=== PATIENT | male | born 1965 | race Two or more races ===

== ENCOUNTER 2018-06-03 11:08 | Inpatient (IN) | payer MEDICAID ==
[~2018-06-03] VITALS: Ht 157.5 cm; Wt 55.8 kg
[2018-06-03 11:20] VITALS: BP 136/80
--- NOTE | 2018-06-03 11:20 | NUR ---
ED Nurse Note: Pt brought in by ambulance from [facility] d/t fever 101.3 F and LLQ abd pain with headache and dizziness. Pt is AAO x4, mongolian speaking with unlabored breathing. Pt came in with a suprapubic catheter.
[2018-06-03] MEDS ORDERED: Cefepime HCl 2 GM in NS 110 ML IV SCH (11:30)
--- NOTE | 2018-06-03 11:45 | Emergency Room Report ---
History of Present Illness General Chief Complaint: Fever Source: Patient, Medical Record, EMS Present Illness HPI Patient was sent in from [facility] after fever. The patient has a minimal cough. He has some muscle aches. He had some chills. He does have a suprapubic catheter and states that he could not urinate and that's why the suprapubic catheter was placed. No chest pain, palpitations, nausea, vomiting, diarrhea, abdominal pain, shortness of breath, depression, visual changes, headache. Patient has a history of seizure disorder. History of HIV. Status post suprapubic catheter placement due to difficulty urinating. The specifics are unclear. Patient is diabetic. Allergies: Coded Allergies: No Known Allergies (Unverified , 06/03/18) Patient History Past Medical History: see triage record, DM, seizures, HIV Social History: Denies: smoking Social History Narrative born in [facility] Reviewed Nursing Documentation: PMH: Agreed; PSxH: Agreed Nursing Documentation-PMH Past Medical History: No History, Except For Hx Hypertension: Yes Hx Diabetes: Yes - Type 1 Hx Seizures: Yes Review of Systems All Other Systems: negative except mentioned in HPI - Somewhat questionable historian Physical Exam Vital Signs Date Time Temp Pulse Resp B/P (MAP) Pulse Ox O2 Delivery O2 Flow Rate FiO2 06/03/18 11:10 101.8 124 16 136/80 92 Room Air Sp02 EP Interpretation: reviewed, abnormal - Interpreted as low by me General Appearance: alert, Chronically Ill Head: normocephalic Eyes: bilateral eye normal inspection, bilateral eye PERRL, bilateral eye EOMI ENT: moist mucus membranes - Poor dentition Neck: supple Respiratory: lungs clear, normal breath sounds Cardiovascular #1: tachycardia Cardiovascular #2: 2+ radial (R) Gastrointestinal: normal inspection, normal bowel sounds, non tender, no mass, non-distended Genitourinary: other - Suprapubic catheter Musculoskeletal: back normal, normal range of motion, no calf tenderness Neurologic: alert, speech normal, no Babinski, motor weakness - Generalized, oriented - X2 Psychiatric: mood/affect normal Skin: normal inspection, warm/dry Medical Decision Making Diagnostic Impression: Primary Impression: Sepsis Qualified Codes: A41.9 - Sepsis, unspecified organism Additional Impressions: UTI (urinary tract infection) Qualified Codes: T83.510A - Infection and inflammatory reaction due to cystostomy catheter, initial encounter; N39.0 - Urinary tract infection, site not specified Hyponatremia Atelectasis ER Course Patient presents with fever and chills. Differential includes sepsis, pneumonia , urinary tract infection amongst others. Because is a suprapubic catheter this is the most likely source. Evaluation will be with EKG, chest x-ray and labs. The patient will be treated with IV hydration and antibiotics will be started to cover her urinary source. EKG was sinus tachycardia. Chest x-ray with right-sided atelectasis and increased hilar waldrop. WBC high. Sodium low. Lactate minimally high. Sepsis re-evaluation. Improved cap fill, HR improved but still tachycardic. Antibiotics begun. 13:10 Repeat lactate improved Discussed with Dr. Bobo on-call for Dr. Steel. Admit tele. Requests admitted to Dr. Dong. Laboratory Tests Test 06/03/18 11:40 White Blood Count 20.1 K/UL (4.8-10.8) H Red Blood Count 4.24 M/UL (4.70-6.10) L Hemoglobin 10.3 G/DL (14.2-18.0) L Hematocrit 32.5 % (42.0-52.0) L Mean Corpuscular Volume 77 FL (80-99) L Mean Corpuscular Hemoglobin 24.3 PG (27.0-31.0) L Mean Corpuscular Hemoglobin Concent 31.6 G/DL (32.0-36.0) L Red Cell Distribution Width 15.6 % (11.6-14.8) H Platelet Count 323 K/UL (150-450) Mean Platelet Volume 4.7 FL (6.5-10.1) L Neutrophils (%) (Auto) % (45.0-75.0) Lymphocytes (%) (Auto) % (20.0-45.0) Monocytes (%) (Auto) % (1.0-10.0) Eosinophils (%) (Auto) % (0.0-3.0) Basophils (%) (Auto) % (0.0-2.0) Differential Total Cells Counted 100 Neutrophils % (Manual) 87 % (45-75) H Lymphocytes % (Manual) 5 % (20-45) L Monocytes % (Manual) 7 % (1-10) Eosinophils % (Manual) 0 % (0-3) Basophils % (Manual) 0 % (0-2) Band Neutrophils 1 % (0-8) Platelet Estimate Adequate Platelet Morphology Normal Hypochromasia 1+ Anisocytosis 1+ Microcytosis 1+ Prothrombin Time 10.2 SEC (9.30-11.50) Prothrombin Time INR 1.0 (0.9-1.1) PTT 26 SEC (23-33) Urine Color Pale yellow Urine Appearance Clear Urine pH 8 (4.5-8.0) Urine Specific [place] 1.015 (1.005-1.035) Urine Protein 2+ (NEGATIVE) H Urine Glucose (UA) 4+ (NEGATIVE) H Urine Ketones Negative (NEGATIVE) Urine Blood 1+ (NEGATIVE) H Urine Nitrite Negative (NEGATIVE) Urine Bilirubin Negative (NEGATIVE) Urine Urobilinogen Normal MG/DL (0.0-1.0) Urine Leukocyte Esterase 2+ (NEGATIVE) H Urine RBC 2-4 /HPF (0 - 0) H Urine WBC 10-15 /HPF (0 - 0) H Urine Squamous Epithelial Cells Occasional /LPF Urine Bacteria Occasional /HPF (NONE) Sodium Level 126 MMOL/L (136-145) L Potassium Level 3.2 MMOL/L (3.5-5.1) L Chloride Level 90 MMOL/L (98-107) L Carbon Dioxide Level 25 MMOL/L (21-32) Anion Gap 11 mmol/L (5-15) Blood Urea Nitrogen 4 mg/dL (7-18) L Creatinine 0.9 MG/DL (0.55-1.30) Estimate Glomerular Filtration Rate > 60 mL/min (>60) Glucose Level 249 MG/DL (74-106) H Lactic Acid Level 2.20 mmol/L (0.4-2.0) H Calcium Level 8.9 MG/DL (8.5-10.1) Magnesium Level 1.8 MG/DL (1.8-2.4) Total Bilirubin 0.2 MG/DL (0.2-1.0) Aspartate Amino Transferase (AST) 21 U/L (15-37) Alanine Aminotransferase (ALT) 19 U/L (12-78) Alkaline Phosphatase 285 U/L (46-116) H Total Creatine Kinase 149 U/L (26-308) Troponin I 0.043 ng/mL (0.000-0.056) Pro-B-Type Natriuretic Peptide 167 pg/mL (0-125) H Total Protein 8.8 G/DL (6.4-8.2) H Albumin 3.7 G/DL (3.4-5.0) Globulin 5.1 g/dL Albumin/Globulin Ratio 0.7 (1.0-2.7) L EKG Diagnostic Results Rate: tachycardiac Rhythm: NSR ST Segments: no acute changes Rhythm Strip Diag. Results EP Interpretation: yes Rhythm: no PVC's, no ectopy, other - Sinus tachycardia Chest X-Ray Diagnostic Results Chest X-Ray Diagnostic Results : Chest X-Ray Ordered: Yes Indication: Other EP Interpretation: Yes Interpretation: no effusion, no pneumothorax, other - R atelectasis Impression: Other Electronically Signed by: Electronically signed by Amos Mims MD Last Vital Signs Date Time Temp Pulse Resp B/P (MAP) Pulse Ox O2 Delivery O2 Flow Rate FiO2 06/03/18 19:26 101.1 06/03/18 16:00 93 140/79 (99) 06/03/18 14:31 Room Air 06/03/18 13:48 25 97 3.0 Status: improved Disposition: ADMITTED INPATIENT Condition: Serious Referrals: Bernie Steel MD (PCP) Amos Mims MD Jun 03, 2018 11:45
--- NOTE | 2018-06-03 11:45 | NUR ---
ED Nurse Note: Blood and urine sent.
--- NOTE | 2018-06-03 12:00 | Diagnostic Imaging Report ---
Indication: Cough Technique: One view of the chest Comparison: none Findings: There is right perihilar atelectasis or scarring. There is bilateral central bronchial wall thickening. No definite infiltrates, effusions, or congestion. The heart size is normal Impression: Bilateral bronchial wall thickening, suspect chronic Right perihilar atelectasis or scarring No acute process otherwise
[2018-06-03 12:09] LABS: HEMATOCRIT 32.5 % (42.0-52.0); HEMOGLOBIN 10.3 G/DL (14.2-18.0); MEAN CORPUSCULAR VOLUME 77 FL (80-99); PLATELET COUNT 323 K/UL (150-450); RED BLOOD COUNT 4.24 M/UL (4.70-6.10); RED CELL DISTRIBUTION WIDTH 15.6 % (11.6-14.8); WHITE BLOOD COUNT 20.1 K/UL (4.8-10.8)
[2018-06-03 12:13] LABS: APPEARANCE,URINE CLEAR; BILIRUBIN, URINE NEGATIVE (NEGATIVE); COLOR,URINE PALE YELLOW; GLUCOSE, URINE (UA) 4+ (NEGATIVE); KETONES,URINE NEGATIVE (NEGATIVE); LEUKOCYTE ESTERASE ,URINE 2+ (NEGATIVE); NITRITE,URINE NEGATIVE (NEGATIVE); PH,URINE 8 (4.5-8.0); PROTEIN,URINE 2+ (NEGATIVE); UROBILINOGEN,URINE NORMAL MG/DL (0.0-1.0)
[2018-06-03 12:16] LABS: ANION GAP 11 mmol/L (5-15); BLOOD UREA NITROGEN 4 mg/dL (7-18); CALCIUM 8.9 MG/DL (8.5-10.1); CARBON DIOXIDE 25 MMOL/L (21-32); CHLORIDE 90 MMOL/L (98-107); CREATININE 0.9 MG/DL (0.55-1.30); POTASSIUM 3.2 MMOL/L (3.5-5.1); SODIUM 126 MMOL/L (136-145)
[2018-06-03 12:28] LABS: ALANINE AMINOTRANSFERASE 19 U/L (12-78); ALBUMIN 3.7 G/DL (3.4-5.0); ALBUMIN/GLOBULIN RATIO 0.7 (1.0-2.7); ALKALINE PHOSPHATASE 285 U/L (46-116); ASPARTATE AMINO TRANSFERASE 21 U/L (15-37); BILIRUBIN,TOTAL 0.2 MG/DL (0.2-1.0); CREATINE KINASE 149 U/L (26-308)
[2018-06-03 13:08] VITALS: BP 130/74
--- NOTE | 2018-06-03 13:43 | NUR ---
ED Nurse Note: Repeat lactic acid sent.
--- NOTE | 2018-06-03 13:47 | NUR ---
ED Nurse Note: Report given to Justin SULLIVAN of telemetry unit and notified him that Dr Bobo is the emotional support teacher MD for Dr Steel.
--- NOTE | 2018-06-03 13:48 | NUR ---
ED Nurse Note: Pt transferred to telemetry unit via gurney by RN and door techniciangary Bonilla. Pt on it help desk technician and All belongings sent.
[2018-06-03 14:30] VITALS: BP 133/80
[2018-06-03] MEDS ORDERED: Mylanta II UD 30ml ORAL PRN (15:02)
[2018-06-03] MEDS ORDERED: Nitroglycerin Subl 0.4mg tab SL PRN (15:03)
[2018-06-03] MEDS ORDERED: Albuterol/Ipratropium 3ml neb HHN PRN (15:03)
[2018-06-03] MEDS ORDERED: Miralax 17gm pkt ORAL PRN (15:04)
[2018-06-03] MEDS ORDERED: Promethazine/Codeine 5ml UD ORAL PRN (15:04)
--- NOTE | 2018-06-03 15:08 | NUR ---
TELEMETRY ADMISSION NOTES: Pt admitted to the floor, PT bed in low position, IV intact and patent Rt Hand 20 asymptomatic and patent, Pt Ox4 calm and cooperative, brand leader on, Md notified of admission, Frisian speaker reason for me to conduct interview [facility] patient, complaints of rt upper arm pain not related to his admission, pt On Room air, ID band on RT wrist, bed alam on, call light at bedside, pt state he has a head ache Vital on admission WNL, pt not confused and is aware of surroundings, pt has clothes from SNF he came from, pt states he has HIV, DM, as his past medical history. Will endorse to NATE Lawson
[2018-06-03 16:00] VITALS: BP 140/79
[2018-06-03] MEDS ORDERED: Vancomycin 1gm/D5W 275ml IVPB ONE ×2 (16:30)
--- NOTE | 2018-06-03 18:49 | History & Physical ---
History and Physical History & Physicial Felix Dong MD Jun 03, 2018 18:49
--- NOTE | 2018-06-03 19:15 | NUR ---
NURSE NOTES: Received report from Bella Mcrae RN. Pt is resting in the bed in RA, not respiratory distress. 2L NC prn is ready to use at the bedside. SR in the monitor, A&O x4, Hungarian speaking. IV site is asymptomatic and patent. Supra pubic cath is in place and patent. urine bag is off the floor, Straw color urine is draining. Bed alarm on, bed in lowest position, and breaks are engaged. Call light , and side table are w/in reach. Will follow plans of care.
--- NOTE | 2018-06-03 19:30 | NUR ---
NURSE NOTES: Dr. Dong notified about patient's temperature. Patient given Tylenol and cooling measures implemented. BP and heart rate within normal range.
--- NOTE | 2018-06-03 19:33 | NUR ---
HAND-OFF: Report given to Arik Clements RN.
[2018-06-03 20:00] VITALS: BP 129/75
[2018-06-03] MEDS: Phenytoin 100mg cap ORAL SCH (20:56)
[2018-06-03] MEDS: NS w/KCl 20mEq 1,000 ML IV SCH (20:56)
[2018-06-03] MEDS: Heparin 5000 units/ml inj SUBQ SCH (21:00)
[2018-06-03] MEDS: NovoLOG Insulin Flexpen SUBQ SCH (21:02)
[2018-06-03] MEDS: Levemir Flexpen SUBQ SCH (21:03)
--- NOTE | 2018-06-03 23:24 | NUR ---
NURSE NOTES: Pt is sleeping w/o distress, easily arousal by voice stimuli. Temp is trending down. Will continue to monitor.
[2018-06-04] VITALS: BP 132/77
[2018-06-04] MEDS: Cefepime HCl 1 GM in D5W 55 ML IV SCH ×2 (00:31→12:05)
--- NOTE | 2018-06-04 03:15 | History and Physical Report ---
DATE OF ADMISSION: 06/03/2018 CHIEF COMPLAINT: Fever. HISTORY OF PRESENT ILLNESS: This is a gentleman from [facility], who presented to the hospital from [facility] with a past medical history significant for hypertension, diabetic, and seizure. The patient was noted to have fever with minimal cough, muscle aches, and some chills. Shortly after initial evaluation in the emergency room, the patient was noted to have lactic acidosis level of 2.20 with WBC of 20.1 and subsequently, the patient was admitted to the hospital with sepsis possibly due to urinary tract infection. PAST MEDICAL/PAST SURGERY: As above. History of hypertension, diabetes type 1, and seizure disorder. MEDICATIONS AT HOME: Please refer to medication reconciliation. ALLERGIES: No known drug allergies. SOCIAL HISTORY: [facility] resident. No smoking, alcohol, or drugs. FAMILY HISTORY: Noncontributory. REVIEW OF SYSTEMS: Limited secondary to the patient's status. The patient is from nursing facility and noncommunicative. PHYSICAL EXAMINATION: VITAL SIGNS: On admission, temperature 101.8, pulse of 124, respirations 16, and blood pressure 136/80. GENERAL: The patient is awake and responsive, no acute distress. HEAD AND NECK: Pupils are reactive to light. Extraocular movements intact. NECK: Supple. No JVD. LUNGS: Good air entry. No wheezing or rales. Decreased in the bases. HEART: S1, S2. Regular rhythm. No murmurs or gallops. ABDOMEN: Soft and nondistended. Suprapubic catheter was noted. No rebound tenderness. No fluid shift. EXTREMITIES: No cyanosis, clubbing, or edema. NEUROLOGIC: MONOTYPER II through XII grossly intact. Moves all four extremities. The patient is moving all the extremities spontaneously. LABORATORY DATA: On admission, WBC of 20, hemoglobin 10.3, hematocrit 32, and platelets is 323,000 with a neutrophil percentage of 87 with 5 lymphocytes and +1 band was identified. Sodium 126, potassium is 3.2, chloride 90, bicarb 25, BUN 4, creatinine 0.9, and glucose of 249. Lactic acid level is 2.20, second one is 1.20. Troponin 0.043. Alkaline phosphatase is 285. ProBNP is 167. Urinalysis, +2 leukocytes, 10 to 15 wbc, 2 to 4 rbc, +2 protein. PT of 10, INR 1.0, PTT of 26. Chest x-ray, bilateral bronchial wall thickening suspicious for chronic right perihilar atelectasis with scarring. No acute process was identified. ASSESSMENT: 1. Sepsis, most likely secondary to urinary tract infection. 2. Hyponatremia. 3. Hypokalemia. 4. Dehydration. 5. Anemia. 6. Diabetes type 1. 7. Hypertension. 8. Seizure disorder. 9. History of urine retention status post suprapubic catheter placement. PLAN: 1. Admit the patient to monitored unit. 2. We will follow up laboratory intravenous hydration. 3. Code status is Full Code at this time. 4. DVT prophylaxis with heparin subcutaneous. 5. Broad-spectrum antibiotic with cefepime. 6. Monitor cultures. 7. We tried to obtain the list of medication from [facility] and [facility]k with sliding scale. Felix Dong M.D. DR: RAE JOB#: [id number] CC:
[2018-06-04 04:00] VITALS: BP 130/78
[2018-06-04] MEDS: NS w/KCl 20mEq 1,000 ML IV SCH ×3 (05:29→22:30)
[2018-06-04] MEDS: Vancomycin 750mg/NS 275ml IVPB SCH ×4 (05:30→17:59)
[2018-06-04] MEDS: NovoLOG Insulin Flexpen SUBQ SCH ×5 (06:02→21:08)
--- NOTE | 2018-06-04 07:30 | NUR ---
HAND-OFF: Report given to Leona García RN.
[2018-06-04 07:39] LABS: HEMATOCRIT 29.7 % (42.0-52.0); HEMOGLOBIN 9.4 G/DL (14.2-18.0); MEAN CORPUSCULAR VOLUME 78 FL (80-99); PLATELET COUNT 304 K/UL (150-450); RED BLOOD COUNT 3.82 M/UL (4.70-6.10); RED CELL DISTRIBUTION WIDTH 15.8 % (11.6-14.8); WHITE BLOOD COUNT 20.3 K/UL (4.8-10.8)
[2018-06-04 08:00] VITALS: BP 127/76
--- NOTE | 2018-06-04 08:07 | NUR ---
NURSE NOTES: Pt in bed in semi fowlers position, in low position, bed alarm on, IV intact and asymptomatic, Pt Ox4 Citizen Of [place] speaker with some Grenadian, pt presently NPO, HIV meds will call [facility] to see how we can get his meds here if possible, bed locked 2 rails up, urostomy on and patent, pt presents with flat affect, no s/s of distress or sob noted.
[2018-06-04 08:14] LABS: ALANINE AMINOTRANSFERASE 15 U/L (12-78); ALBUMIN 2.9 G/DL (3.4-5.0); ALBUMIN/GLOBULIN RATIO 0.7 (1.0-2.7); ALKALINE PHOSPHATASE 216 U/L (46-116); ANION GAP 8 mmol/L (5-15); ASPARTATE AMINO TRANSFERASE 14 U/L (15-37); BILIRUBIN,TOTAL 0.3 MG/DL (0.2-1.0); BLOOD UREA NITROGEN 5 mg/dL (7-18); CALCIUM 8.1 MG/DL (8.5-10.1); CARBON DIOXIDE 25 MMOL/L (21-32); CHLORIDE 104 MMOL/L (98-107); CREATININE 0.7 MG/DL (0.55-1.30); PHOSPHORUS 2.3 MG/DL (2.5-4.9); POTASSIUM 3.7 MMOL/L (3.5-5.1); SODIUM 137 MMOL/L (136-145)
--- NOTE | 2018-06-04 08:20 | Consultation ---
History of Present Illness General Chief Complaint: Fever Reason for Consultation: Sepsis Present Illness HPI Mr. Marroquin is a 53 yo male with PMHx of HIV, HTN, DM and Seizure disorder and suprapubic catheter. He was brought to the ED from his half-way for Fever with cough chills and muscle aches. He reports No N/V/D abdomian or SOB. His fever was up to 102 in the ED but his temp is now normal. CXR neg, UA positive. He sasy that he is feeing much better this morning with no muscle aches or fevers ID consulted for ID was consulted for Sepsis PMHx/PSHx HIV HTN DM Seizure disorder Suprapubic catheter. SocHx No E/T/D FamHx Not Contributory Allergies: Coded Allergies: No Known Allergies (Unverified , 06/03/18) Patient History Healthcare decision maker self Resuscitation status Full Code Advanced Directive on File Review of Systems ROS Narrative 12 point ROS negative except as note in the HPI. Physical Exam Last 24 Hour Vital Signs Date Time Temp Pulse Resp B/P (MAP) Pulse Ox O2 Delivery O2 Flow Rate FiO2 06/04/18 06:30 95 18 Room Air 21 06/04/18 04:00 98.2 72 18 130/78 (95) 98 06/04/18 03:50 66 06/04/18 00:00 99.5 85 18 132/77 (95) 96 06/03/18 23:47 86 06/03/18 21:00 Room Air 06/03/18 20:00 93 18 Room Air 21 06/03/18 20:00 99.5 93 18 129/75 (93) 96 06/03/18 19:26 101.1 06/03/18 19:23 93 06/03/18 18:25 101.2 06/03/18 17:46 101.6 06/03/18 16:00 101.7 93 140/79 (99) 06/03/18 15:34 103 06/03/18 14:31 Room Air 06/03/18 14:30 97.7 103 133/80 (97) 06/03/18 13:48 99.6 90 25 130/74 97 Room Air 3.0 06/03/18 13:08 99.6 90 25 130/74 97 Room Air 4/12/19 12:31 86 16 Nasal Cannula 3.0 06/03/18 11:20 101.8 95 19 136/80 94 Room Air 06/03/18 11:10 101.8 124 16 136/80 92 Room Air Intake and Output 06/03/18 06/04/18 18:59 06:59 Intake Total 2260 ml 1197 ml Output Total 800 ml 1200 ml Balance 1460 ml -3 ml Intake IV Total 2260 ml 1197 ml Output Urine Total 800 ml 1200 ml # Voids 1 # Bowel Movements 1 Laboratory Tests Test 06/03/18 11:40 06/03/18 13:40 06/04/18 07:11 White Blood Count 20.1 K/UL (4.8-10.8) H 20.3 K/UL (4.8-10.8) H Red Blood Count 4.24 M/UL (4.70-6.10) L 3.82 M/UL (4.70-6.10) L Hemoglobin 10.3 G/DL (14.2-18.0) L 9.4 G/DL (14.2-18.0) L Hematocrit 32.5 % (42.0-52.0) L 29.7 % (42.0-52.0) L Mean Corpuscular Volume 77 FL (80-99) L 78 FL (80-99) L Mean Corpuscular Hemoglobin 24.3 PG (27.0-31.0) L 24.6 PG (27.0-31.0) L Mean Corpuscular Hemoglobin Concent 31.6 G/DL (32.0-36.0) L 31.6 G/DL (32.0-36.0) L Red Cell Distribution Width 15.6 % (11.6-14.8) H 15.8 % (11.6-14.8) H Platelet Count 323 K/UL (150-450) 304 K/UL (150-450) Mean Platelet Volume 4.7 FL (6.5-10.1) L 4.6 FL (6.5-10.1) L Neutrophils (%) (Auto) % (45.0-75.0) % (45.0-75.0) Lymphocytes (%) (Auto) % (20.0-45.0) % (20.0-45.0) Monocytes (%) (Auto) % (1.0-10.0) % (1.0-10.0) Eosinophils (%) (Auto) % (0.0-3.0) % (0.0-3.0) Basophils (%) (Auto) % (0.0-2.0) % (0.0-2.0) Differential Total Cells Counted 100 100 Neutrophils % (Manual) 87 % (45-75) H 86 % (45-75) H Lymphocytes % (Manual) 5 % (20-45) L 6 % (20-45) L Monocytes % (Manual) 7 % (1-10) 8 % (1-10) Eosinophils % (Manual) 0 % (0-3) 0 % (0-3) Basophils % (Manual) 0 % (0-2) 0 % (0-2) Band Neutrophils 1 % (0-8) 0 % (0-8) Platelet Estimate Adequate Adequate Platelet Morphology Normal Normal Hypochromasia 1+ 2+ Anisocytosis 1+ 1+ Microcytosis 1+ 1+ Prothrombin Time 10.2 SEC (9.30-11.50) Prothromb Time International Ratio 1.0 (0.9-1.1) Activated Partial Thromboplast Time 26 SEC (23-33) Urine Color Pale yellow Urine Appearance Clear Urine pH 8 (4.5-8.0) Urine Specific [place] 1.015 (1.005-1.035) Urine Protein 2+ (NEGATIVE) H Urine Glucose (UA) 4+ (NEGATIVE) H Urine Ketones Negative (NEGATIVE) Urine Blood 1+ (NEGATIVE) H Urine Nitrite Negative (NEGATIVE) Urine Bilirubin Negative (NEGATIVE) Urine Urobilinogen Normal MG/DL (0.0-1.0) Urine Leukocyte Esterase 2+ (NEGATIVE) H Urine RBC 2-4 /HPF (0 - 0) H Urine WBC 10-15 /HPF (0 - 0) H Urine Squamous Epithelial Cells Occasional /LPF Urine Bacteria Occasional /HPF (NONE) Sodium Level 126 MMOL/L (136-145) L Pending Potassium Level 3.2 MMOL/L (3.5-5.1) L Pending Chloride Level 90 MMOL/L (98-107) L Pending Carbon Dioxide Level 25 MMOL/L (21-32) Pending Anion Gap 11 mmol/L (5-15) Blood Urea Nitrogen 4 mg/dL (7-18) L Pending Creatinine 0.9 MG/DL (0.55-1.30) Pending Estimat Glomerular Filtration Rate > 60 mL/min (>60) Pending Glucose Level 249 MG/DL (74-106) H Pending Lactic Acid Level 2.20 mmol/L (0.4-2.0) H 1.20 mmol/L (0.66-2.22) Calcium Level 8.9 MG/DL (8.5-10.1) Pending Magnesium Level 1.8 MG/DL (1.8-2.4) Pending Total Bilirubin 0.2 MG/DL (0.2-1.0) Pending Aspartate Amino Transf (AST/SGOT) 21 U/L (15-37) Pending Alanine Aminotransferase (ALT/SGPT) 19 U/L (12-78) Pending Alkaline Phosphatase 285 U/L (46-116) H Pending Total Creatine Kinase 149 U/L (26-308) Troponin I 0.043 ng/mL (0.000-0.056) Pro-B-Type Natriuretic Peptide 167 pg/mL (0-125) H Total Protein 8.8 G/DL (6.4-8.2) H Pending Albumin 3.7 G/DL (3.4-5.0) Pending Globulin 5.1 g/dL Pending Albumin/Globulin Ratio 0.7 (1.0-2.7) L Phosphorus Level Pending Microbiology Date/Time Source Procedure Growth Status 06/03/18 11:40 Urine,Suprapubic Urine Culture - Preliminary NO GROWTH Resulted Height (Feet): 5 Height (Inches): 2.00 Weight (Pounds): 123 Medications Current Medications Medications (Trade) Dose Ordered Sig/Shailesh Route PRN Reason Start Time Stop Time Status Last Admin Dose Admin Acetaminophen (Tylenol) 650 mg Q4H PRN ORAL fever 06/03/18 15:02 07/03/18 15:01 06/03/18 17:16 Al Hydroxide/Mg Hydroxide (Mylanta II) 30 ml Q6H PRN ORAL dyspepsia 06/03/18 15:02 07/03/18 15:01 Albuterol/ Ipratropium (Albuterol/ Ipratropium) 3 ml Q4H PRN HHN Shortness of Breath 06/03/18 15:03 06/08/18 15:02 Cefepime HCl 1 gm/ Dextrose 55 ml @ 110 mls/hr Q12H IV 06/04/18 00:00 06/11/18 00:00 06/04/18 00:31 Cyanocobalamin (Vitamin B-12) 500 mcg DAILY ORAL 06/04/18 09:00 07/04/18 08:59 Darunavir (Prezista) 800 mg DAILY ORAL 06/04/18 09:00 07/04/18 08:59 UNV Dextrose (Dextrose 50%) 25 ml Q30M PRN IV Hypoglycemia 06/03/18 18:45 07/03/18 18:44 Dextrose (Dextrose 50%) 50 ml Q30M PRN IV Hypoglycemia 06/03/18 18:45 07/03/18 18:44 Emtricitabine/ Tenofovir (Truvada 200/ 300mg) 1 tab DAILY ORAL 06/04/18 09:00 07/04/18 08:59 UNV Heparin Sodium (Porcine) (Heparin 5000 units/ml) 5,000 units EVERY 12 HOURS SUBQ 06/03/18 21:00 07/03/18 20:59 06/03/18 21:00 Insulin Aspart (NovoLOG) BEFORE MEALS AND HS SUBQ 06/03/18 21:00 07/03/18 20:59 06/03/18 21:02 Insulin Detemir (Levemir) 10 units BEDTIME SUBQ 06/03/18 21:00 07/03/18 20:59 06/03/18 21:03 Metformin HCl (Glucophage) 1,000 mg BIDLS ORAL 06/04/18 11:30 07/04/18 11:29 Nitroglycerin (Ntg) 0.4 mg Q5M PRN SL Prn Chest Pain 06/03/18 15:03 07/03/18 15:02 Ondansetron HCl (Zofran) 4 mg Q6H PRN IVP Nausea & Vomiting 06/03/18 15:03 07/03/18 15:02 Phenytoin (Dilantin) 200 mg EVERY 12 HOURS ORAL 06/03/18 21:00 07/03/18 20:59 06/03/18 20:56 Polyethylene Glycol (Miralax) 17 gm DAILYPRN PRN ORAL Constipation 06/03/18 15:04 07/03/18 15:03 Pravastatin Sodium (Pravachol) 20 mg BEDTIME ORAL 06/03/18 21:00 07/03/18 20:59 06/03/18 20:55 Promethazine HCl/ Codeine (Phenergan with Codeine) 5 ml Q4H PRN ORAL For Cough 06/03/18 15:04 07/03/18 15:03 Ritonavir (Norvir) 100 mg DAILY ORAL 06/04/18 09:00 07/04/18 08:59 UNV Sodium Chloride 1,000 ml @ 100 mls/hr Q10H IV 06/03/18 18:45 07/03/18 18:44 06/04/18 05:29 Temazepam (Restoril) 15 mg HSPRN PRN ORAL Insomnia 06/03/18 21:00 06/10/18 20:59 Vancomycin HCl (Vanco rx to dose) 1 ea DAILY PRN MISC Per rx protocol 06/03/18 15:00 07/03/18 14:59 Vancomycin HCl 750 mg/Sodium Chloride 275 ml @ 183.333 mls/hr Q12H IVPB 06/04/18 05:00 06/09/18 04:59 06/04/18 05:30 Objective Narrative Gen: NAD, HEENT: NCAT, MMM, EOMI, PERRL, No Oral lesion, no scleral icterus NECK: full range of motion, supple, no meningismus, No LAD, No JVD LUNGS: CTAB, No W/C, No Accessory muscle use CARDS: RRR, S1, S2, No M/R/G, ABD: Soft, NT, ND, No R/G, + BS, No HSM, No Masses, Suprapubic cath (No E/P) : Deferred Ext: C/C/E, Pulses 2+ B/L (DP, Rad): NEURO: A/O x 4, Strength and Sensation Grossly intact SKIN: Warm/dry, No Rash Assessment/Plan Assessment/Plan 53 yo male with PMHx of HIV, HTN, DM and Seizure disorder and suprapubic catheter. He was brought to the ED from his half-way for Fever with cough chills and muscle aches. Sepsis - Proabable UTI vs viral infection. WBCs 20, Lac 2.2 UA positive Suprapubic cath Fever to 102 HIV On Truvada, Prezista and Norvir HTN DM Seizure disorder PLAN - Continue Vancomycin #1 and cefepime #1 - f/u Cultures - Monitor clinically - Monitor CBC and Temps Thank you for this consult. We will continue to follow the patient during this hospitalization. Amos Casas MD Jun 04, 2018 08:20
[2018-06-04] MEDS: Phenytoin 100mg cap ORAL SCH ×2 (08:54→21:03)
[2018-06-04] MEDS: Heparin 5000 units/ml inj SUBQ SCH ×3 (08:55→21:07)
[2018-06-04] MEDS ORDERED: Vitamin B-12 500mcg tab ORAL SCH (09:00)
[2018-06-04] MEDS ORDERED: Ritonavir 100mg tab ORAL SCH (09:00)
[2018-06-04 12:00] VITALS: BP 146/80
[2018-06-04] MEDS: metFORMIN 500mg tab ORAL SCH ×2 (12:00→16:47)
[2018-06-04] MEDS ORDERED: BACTRIM DS TAB1 EAC1 ORAL (14:22)
[2018-06-04] MEDS ORDERED: ACTOS30 MG ORAL (14:22)
[2018-06-04] MEDS ORDERED: COLACE100 MG ORAL (14:23)
[2018-06-04] MEDS ORDERED: DILANTIN100 MG ORAL (14:25)
[2018-06-04] MEDS ORDERED: BISACODYL10 M1 RC (14:26)
[2018-06-04] MEDS ORDERED: AMITRIPTYLINE25 MG ORAL (14:27)
[2018-06-04] MEDS ORDERED: FLEET ENEMA133 ML RECTAL (14:28)
[2018-06-04] MEDS ORDERED: GABAPENTIN300 MG ORAL (14:29)
[2018-06-04] MEDS ORDERED: GUAIFENESI100 MG/5 M ORAL (14:30)
[2018-06-04] MEDS ORDERED: LANTUS SOL100 UNIT/1 SUBQ (14:31)
[2018-06-04] MEDS ORDERED: METFORMIN HCL1000 M1 ORAL (14:32)
[2018-06-04] MEDS ORDERED: NORVIR100 MG ORAL (14:33)
[2018-06-04] MEDS ORDERED: MILK OF MA400 MG/51 ORAL (14:33)
[2018-06-04] MEDS ORDERED: NOVOLIN N100 UNIT/1 SUBQ (14:34)
[2018-06-04] MEDS ORDERED: PREZISTA800 MG ORAL (14:37)
[2018-06-04] MEDS ORDERED: PRAVASTATIN SOD20 M1 ORAL (14:37)
[2018-06-04] MEDS ORDERED: ACETAMINOPHEN325 M1 ORAL (14:38)
[2018-06-04] MEDS ORDERED: TRUVADA 200 MG1 EAC1 ORAL (14:38)
[2018-06-04] MEDS ORDERED: VITAMIN B-12500 MCG ORAL (14:39)
[2018-06-04] MEDS ORDERED: VITAMIN D250000 UNI1 ORAL (14:40)
--- NOTE | 2018-06-04 15:54 | NUR ---
CASE MANAGEMENT: REVIEW 53/M BIBA FROM [facility] CC: FEVER SI: SEPSIS . UTI HX SUPRAPUBIC CATH . T 101.8 HR 124 RR 16 BP 136/80 SAT 92% ROOM AIR WBC 20.1 H/H 10.3/32.5 NA 126 K 3.2 UA: PROTEIN 2+ GLUCOSE 4+ LEUKOCYTE 2+ RBC 2-4 WBC 10-15 IS: NS IVF BOLUS X1 LEVOFLOXACIN IV X1 VANCO IV X1 TELEMETRY UNIT STATUS DCP: PATIENT IS FROM [facility]
[2018-06-04 16:00] VITALS: BP 130/77
--- NOTE | 2018-06-04 16:01 | Internal Med Progress Note ---
Subjective Physician Name Felix Dong Attending Physician Felix Dong MD Current Medications Medications (Trade) Dose Ordered Sig/Shailesh Route PRN Reason Start Time Stop Time Status Last Admin Dose Admin Acetaminophen (Tylenol) 650 mg Q4H PRN ORAL fever 06/03/18 15:02 07/03/18 15:01 06/03/18 17:16 Al Hydroxide/Mg Hydroxide (Mylanta II) 30 ml Q6H PRN ORAL dyspepsia 06/03/18 15:02 07/03/18 15:01 Albuterol/ Ipratropium (Albuterol/ Ipratropium) 3 ml Q4H PRN HHN Shortness of Breath 06/03/18 15:03 06/08/18 15:02 Cefepime HCl 1 gm/ Dextrose 55 ml @ 110 mls/hr Q12H IV 06/04/18 00:00 06/11/18 00:00 06/04/18 12:05 Cyanocobalamin (Vitamin B-12) 500 mcg DAILY ORAL 06/04/18 09:00 07/04/18 08:59 06/04/18 08:54 Darunavir (Prezista) 800 mg DAILY ORAL 06/04/18 09:00 07/04/18 08:59 UNV Dextrose (Dextrose 50%) 25 ml Q30M PRN IV Hypoglycemia 06/03/18 18:45 07/03/18 18:44 Dextrose (Dextrose 50%) 50 ml Q30M PRN IV Hypoglycemia 06/03/18 18:45 07/03/18 18:44 Emtricitabine/ Tenofovir (Truvada 200/ 300mg) 1 tab DAILY ORAL 06/04/18 09:00 07/04/18 08:59 UNV Heparin Sodium (Porcine) (Heparin 5000 units/ml) 5,000 units EVERY 12 HOURS SUBQ 06/03/18 21:00 07/03/18 20:59 06/04/18 08:55 Insulin Aspart (NovoLOG) BEFORE MEALS AND HS SUBQ 06/03/18 21:00 07/03/18 20:59 06/03/18 21:02 Insulin Detemir (Levemir) 10 units BEDTIME SUBQ 06/03/18 21:00 07/03/18 20:59 06/03/18 21:03 Metformin HCl (Glucophage) 1,000 mg BIDLS ORAL 06/04/18 11:30 07/04/18 11:29 06/04/18 12:00 Nitroglycerin (Ntg) 0.4 mg Q5M PRN SL Prn Chest Pain 06/03/18 15:03 07/03/18 15:02 Ondansetron HCl (Zofran) 4 mg Q6H PRN IVP Nausea & Vomiting 06/03/18 15:03 07/03/18 15:02 Phenytoin (Dilantin) 200 mg EVERY 12 HOURS ORAL 06/03/18 21:00 07/03/18 20:59 06/04/18 08:54 Polyethylene Glycol (Miralax) 17 gm DAILYPRN PRN ORAL Constipation 06/03/18 15:04 07/03/18 15:03 Pravastatin Sodium (Pravachol) 20 mg BEDTIME ORAL 06/03/18 21:00 07/03/18 20:59 06/03/18 20:55 Promethazine HCl/ Codeine (Phenergan with Codeine) 5 ml Q4H PRN ORAL For Cough 06/03/18 15:04 07/03/18 15:03 Ritonavir (Norvir) 100 mg DAILY ORAL 06/04/18 09:00 07/04/18 08:59 UNV Sodium Chloride 1,000 ml @ 100 mls/hr Q10H IV 06/03/18 18:45 07/03/18 18:44 06/04/18 05:29 Temazepam (Restoril) 15 mg HSPRN PRN ORAL Insomnia 06/03/18 21:00 06/10/18 20:59 Vancomycin HCl (Vanco rx to dose) 1 ea DAILY PRN MISC Per rx protocol 06/03/18 15:00 07/03/18 14:59 Vancomycin HCl 750 mg/Sodium Chloride 275 ml @ 183.333 mls/hr Q12H IVPB 06/04/18 05:00 06/09/18 04:59 06/04/18 05:30 Allergies: Coded Allergies: No Known Allergies (Unverified , 06/03/18) Subjective Awake, alert, responsive, sitting up in a chair, feeling much better. WBCs 20.7 , sodium was 137. Objective Last Vital Signs Date Time Temp Pulse Resp B/P (MAP) Pulse Ox O2 Delivery O2 Flow Rate FiO2 06/04/18 12:00 98.6 98 18 146/80 (102) 100 06/04/18 08:16 Room Air 06/04/18 06:30 21 06/03/18 13:48 3.0 Laboratory Tests Test 06/04/18 07:11 White Blood Count 20.3 K/UL (4.8-10.8) H Red Blood Count 3.82 M/UL (4.70-6.10) L Hemoglobin 9.4 G/DL (14.2-18.0) L Hematocrit 29.7 % (42.0-52.0) L Mean Corpuscular Volume 78 FL (80-99) L Mean Corpuscular Hemoglobin 24.6 PG (27.0-31.0) L Mean Corpuscular Hemoglobin Concent 31.6 G/DL (32.0-36.0) L Red Cell Distribution Width 15.8 % (11.6-14.8) H Platelet Count 304 K/UL (150-450) Mean Platelet Volume 4.6 FL (6.5-10.1) L Neutrophils (%) (Auto) % (45.0-75.0) Lymphocytes (%) (Auto) % (20.0-45.0) Monocytes (%) (Auto) % (1.0-10.0) Eosinophils (%) (Auto) % (0.0-3.0) Basophils (%) (Auto) % (0.0-2.0) Differential Total Cells Counted 100 Neutrophils % (Manual) 86 % (45-75) H Lymphocytes % (Manual) 6 % (20-45) L Monocytes % (Manual) 8 % (1-10) Eosinophils % (Manual) 0 % (0-3) Basophils % (Manual) 0 % (0-2) Band Neutrophils 0 % (0-8) Platelet Estimate Adequate Platelet Morphology Normal Hypochromasia 2+ Anisocytosis 1+ Microcytosis 1+ Sodium Level 137 MMOL/L (136-145) # Potassium Level 3.7 MMOL/L (3.5-5.1) Chloride Level 104 MMOL/L (98-107) Carbon Dioxide Level 25 MMOL/L (21-32) Anion Gap 8 mmol/L (5-15) Blood Urea Nitrogen 5 mg/dL (7-18) L Creatinine 0.7 MG/DL (0.55-1.30) Estimat Glomerular Filtration Rate > 60 mL/min (>60) Glucose Level 106 MG/DL (74-106) # Calcium Level 8.1 MG/DL (8.5-10.1) L Phosphorus Level 2.3 MG/DL (2.5-4.9) L Magnesium Level 2.0 MG/DL (1.8-2.4) Total Bilirubin 0.3 MG/DL (0.2-1.0) Aspartate Amino Transf (AST/SGOT) 14 U/L (15-37) L Alanine Aminotransferase (ALT/SGPT) 15 U/L (12-78) Alkaline Phosphatase 216 U/L (46-116) H Total Protein 7.3 G/DL (6.4-8.2) Albumin 2.9 G/DL (3.4-5.0) L Globulin 4.4 g/dL Albumin/Globulin Ratio 0.7 (1.0-2.7) L Microbiology Date/Time Source Procedure Growth Status 06/03/18 11:40 Urine,Suprapubic Urine Culture - Preliminary NO GROWTH Resulted Intake and Output 06/03/18 06/04/18 19:00 07:00 Intake Total 2310 ml 1430.333 ml Output Total 800 ml 1200 ml Balance 1510 ml 230.333 ml Intake IV Total 2310 ml 1430.333 ml Output Urine Total 800 ml 1200 ml # Voids 1 # Bowel Movements 1 Objective GENERAL: awake and responsive, no acute distress. HEAD AND NECK: Pupils are reactive to light. Extraocular movements intact. NECK: Supple. No JVD. LUNGS: Good air entry. No wheezing or rales. Decreased in the bases. HEART: S1, S2. Regular rhythm. No murmurs or gallops. ABDOMEN: Soft, nontender, nondistended. Suprapubic catheter was noted. No rebound tenderness. No fluid shift. EXTREMITIES: No cyanosis, clubbing, or edema. NEUROLOGIC: [employer] II through XII grossly intact. Moves all four extremities. moving all the extremities equally and 5/5 motor. Assessment/Plan Assessment/Plan ASSESSMENT: 1. Sepsis, most likely secondary to urinary tract infection. 2. Hyponatremia. 3. Hypokalemia. 4. Dehydration. 5. Anemia. 6. Diabetes type 1. 7. Hypertension. 8. Seizure disorder. 9. History of urine retention status post suprapubic catheter placement. PLAN: 1. Admit the patient to monitored unit. 2. We will follow up laboratory intravenous hydration. 3. Code status is Full Code at this time. 4. DVT prophylaxis with heparin subcutaneous. 5. Broad-spectrum antibiotic with cefepime. 6. Monitor cultures. 7. We tried to obtain the list of medication from skilled nursing and Accu-Chek with sliding scale. Felix Dong M.D. Felix Dong MD Jun 04, 2018 16:01
--- NOTE | 2018-06-04 17:01 | Consultation ---
History of Present Illness General Date patient seen: Jun 04, 2018 Chief Complaint: Fever Reason for Consultation: Sepsis Present Illness HPI 53 year old male with hx of DM, seizures, HIV, Status post suprapubic catheter , from [facility] was sent to ER with CC of fever and minimal cough, some chills. He does have a suprapubic catheter and states that he could not urinate and that's why the suprapubic catheter was placed. Allergies: Coded Allergies: No Known Allergies (Unverified , 06/03/18) Medication History Scheduled Amitriptyline HCl (Elavil*), 25 MG ORAL BEDTIME, (Reported) Cefepime Hcl/D5w (Cefepime-Dextrose 2 Gm/50 Ml), 2 GM IVPB EVERY 12 HOURS, ( Reported) Cefepime Hcl/D5w (Cefepime-Dextrose 2 Gm/50 Ml), 2 GM IVPB EVERY 12 HOURS, ( Reported) Cyanocobalamin (Vitamin B-12)* (Vitamin B-12*), 500 MCG ORAL DAILY, (Reported) Darunavir Ethanolate (Prezista), 800 MG ORAL DAILY, (Reported) Docusate Sodium* (Colace*), 100 MG ORAL TWICE A DAY, (Reported) Emtricitabine/Tenofovir 200-300MG* (Truvada 200-300MG*), 1 TAB ORAL DAILY, ( Reported) Ergocalciferol (Vitamin D2)* (Vitamin D*), 50,000 UNIT ORAL ONCE A WEEK, ( Reported) Gabapentin* (Gabapentin*), 300 MG ORAL TWICE A DAY, (Reported) Insulin Glargine (Lantus), 10 UNITS SUBQ BEDTIME, (Reported) Metformin Hcl* (Metformin Hcl*), 1,000 MG ORAL TWICE A DAY, (Reported) Nph, Human Insulin Isophane* (Novolin N*), 15 UNITS SUBQ TWICE A DAY, (Reported) Phenytoin Sodium Extended* (Dilantin*), 200 MG ORAL TWICE A DAY, (Reported) Pioglitazone Hcl* (Actos*), 30 MG ORAL DAILY, (Reported) Pravastatin Sod* (Pravastatin Sod*), 20 MG ORAL BEDTIME, (Reported) Ritonavir* (Norvir*), 100 MG ORAL DAILY, (Reported) Trimethoprim/Sulfamethoxazole 160/800* (Bactrim Ds Tablet*), 1 TAB ORAL TWICE A DAY, (Reported) Vancomycin Hcl (Vancomycin Hcl), 1 GM IV Q8HR, (Reported) Scheduled PRN Acetaminophen* (Acetaminophen 325MG Tablet*), 650 MG ORAL Q4H PRN for Mild Pain/ Temp > 100.5, (Reported) Bisacodyl (Bisacodyl), 10 MG RC for Constipation, (Reported) Guaifenesin* (Guaifenesin), 10 ML ORAL Q6H PRN for For Cough, (Reported) Magnesium Hydroxide* (Milk Of Magnesia*), 30 ML ORAL DAILY PRN for Constipation, (Reported) Na Phos,M-B/Na Phos,Di-Ba* (Fleet Enema*), 133 ML RECTAL DAILY PRN for Constipation, (Reported) Patient History Healthcare decision maker self Resuscitation status Full Code Advanced Directive on File Past Medical/Surgical History Past Medical/Surgical History: (1) HIV disease (2) Seizure disorder (3) Diabetes mellitus Review of Systems All Other Systems: negative except mentioned in HPI Physical Exam General Appearance: no apparent distress, cachetic Lines, tubes and drains: peripheral HEENT: normocephalic, atraumatic Neck: non-tender, normal alignment Respiratory/Chest: chest wall non-tender, lungs clear Breasts: no masses Cardiovascular/Chest: normal peripheral pulses, normal rate Abdomen: normal bowel sounds Genitourinary/Rectal: normal genital exam, heme negative stool Extremities: normal range of motion Last 24 Hour Vital Signs Date Time Temp Pulse Resp B/P (MAP) Pulse Ox O2 Delivery O2 Flow Rate FiO2 06/04/18 16:00 98.4 100 19 130/77 (94) 97 06/04/18 12:00 98.6 98 18 146/80 (102) 100 06/04/18 11:48 90 06/04/18 08:16 Room Air 06/04/18 08:00 97.9 75 18 127/76 (93) 98 06/04/18 07:58 78 06/04/18 06:30 95 18 Room Air 21 06/04/18 04:00 98.2 72 18 130/78 (95) 98 06/04/18 03:50 66 06/04/18 00:00 99.5 85 18 132/77 (95) 96 06/03/18 23:47 86 06/03/18 21:00 Room Air 06/03/18 20:00 93 18 Room Air 21 06/03/18 20:00 99.5 93 18 129/75 (93) 96 06/03/18 19:26 101.1 06/03/18 19:23 93 06/03/18 18:25 101.2 06/03/18 17:46 101.6 Intake and Output 06/03/18 06/04/18 19:00 07:00 Intake Total 2310 ml 1430.333 ml Output Total 800 ml 1200 ml Balance 1510 ml 230.333 ml Intake IV Total 2310 ml 1430.333 ml Output Urine Total 800 ml 1200 ml # Voids 1 # Bowel Movements 1 Laboratory Tests Test 06/04/18 07:11 White Blood Count 20.3 K/UL (4.8-10.8) H Red Blood Count 3.82 M/UL (4.70-6.10) L Hemoglobin 9.4 G/DL (14.2-18.0) L Hematocrit 29.7 % (42.0-52.0) L Mean Corpuscular Volume 78 FL (80-99) L Mean Corpuscular Hemoglobin 24.6 PG (27.0-31.0) L Mean Corpuscular Hemoglobin Concent 31.6 G/DL (32.0-36.0) L Red Cell Distribution Width 15.8 % (11.6-14.8) H Platelet Count 304 K/UL (150-450) Mean Platelet Volume 4.6 FL (6.5-10.1) L Neutrophils (%) (Auto) % (45.0-75.0) Lymphocytes (%) (Auto) % (20.0-45.0) Monocytes (%) (Auto) % (1.0-10.0) Eosinophils (%) (Auto) % (0.0-3.0) Basophils (%) (Auto) % (0.0-2.0) Differential Total Cells Counted 100 Neutrophils % (Manual) 86 % (45-75) H Lymphocytes % (Manual) 6 % (20-45) L Monocytes % (Manual) 8 % (1-10) Eosinophils % (Manual) 0 % (0-3) Basophils % (Manual) 0 % (0-2) Band Neutrophils 0 % (0-8) Platelet Estimate Adequate Platelet Morphology Normal Hypochromasia 2+ Anisocytosis 1+ Microcytosis 1+ Sodium Level 137 MMOL/L (136-145) # Potassium Level 3.7 MMOL/L (3.5-5.1) Chloride Level 104 MMOL/L (98-107) Carbon Dioxide Level 25 MMOL/L (21-32) Anion Gap 8 mmol/L (5-15) Blood Urea Nitrogen 5 mg/dL (7-18) L Creatinine 0.7 MG/DL (0.55-1.30) Estimat Glomerular Filtration Rate > 60 mL/min (>60) Glucose Level 106 MG/DL (74-106) # Calcium Level 8.1 MG/DL (8.5-10.1) L Phosphorus Level 2.3 MG/DL (2.5-4.9) L Magnesium Level 2.0 MG/DL (1.8-2.4) Total Bilirubin 0.3 MG/DL (0.2-1.0) Aspartate Amino Transf (AST/SGOT) 14 U/L (15-37) L Alanine Aminotransferase (ALT/SGPT) 15 U/L (12-78) Alkaline Phosphatase 216 U/L (46-116) H Total Protein 7.3 G/DL (6.4-8.2) Albumin 2.9 G/DL (3.4-5.0) L Globulin 4.4 g/dL Albumin/Globulin Ratio 0.7 (1.0-2.7) L Height (Feet): 5 Height (Inches): 2.00 Weight (Pounds): 123 Medications Current Medications Medications (Trade) Dose Ordered Sig/Shailesh Route PRN Reason Start Time Stop Time Status Last Admin Dose Admin Acetaminophen (Tylenol) 650 mg Q4H PRN ORAL fever 06/03/18 15:02 07/03/18 15:01 06/03/18 17:16 Al Hydroxide/Mg Hydroxide (Mylanta II) 30 ml Q6H PRN ORAL dyspepsia 06/03/18 15:02 07/03/18 15:01 Albuterol/ Ipratropium (Albuterol/ Ipratropium) 3 ml Q4H PRN HHN Shortness of Breath 06/03/18 15:03 06/08/18 15:02 Cefepime HCl 1 gm/ Dextrose 55 ml @ 110 mls/hr Q12H IV 06/04/18 00:00 06/11/18 00:00 06/04/18 12:05 Cyanocobalamin (Vitamin B-12) 500 mcg DAILY ORAL 06/04/18 09:00 07/04/18 08:59 06/04/18 08:54 Darunavir (Prezista) 800 mg DAILY ORAL 06/04/18 09:00 07/04/18 08:59 UNV Dextrose (Dextrose 50%) 25 ml Q30M PRN IV Hypoglycemia 06/03/18 18:45 07/03/18 18:44 Dextrose (Dextrose 50%) 50 ml Q30M PRN IV Hypoglycemia 06/03/18 18:45 07/03/18 18:44 Emtricitabine/ Tenofovir (Truvada 200/ 300mg) 1 tab DAILY ORAL 06/04/18 09:00 07/04/18 08:59 UNV Heparin Sodium (Porcine) (Heparin 5000 units/ml) 5,000 units EVERY 12 HOURS SUBQ 06/03/18 21:00 07/03/18 20:59 06/04/18 08:55 Insulin Aspart (NovoLOG) BEFORE MEALS AND HS SUBQ 06/03/18 21:00 07/03/18 20:59 06/04/18 16:48 Insulin Detemir (Levemir) 10 units BEDTIME SUBQ 06/03/18 21:00 07/03/18 20:59 06/03/18 21:03 Metformin HCl (Glucophage) 1,000 mg BIDLS ORAL 06/04/18 11:30 07/04/18 11:29 06/04/18 16:47 Nitroglycerin (Ntg) 0.4 mg Q5M PRN SL Prn Chest Pain 06/03/18 15:03 07/03/18 15:02 Ondansetron HCl (Zofran) 4 mg Q6H PRN IVP Nausea & Vomiting 06/03/18 15:03 07/03/18 15:02 Phenytoin (Dilantin) 200 mg EVERY 12 HOURS ORAL 06/03/18 21:00 07/03/18 20:59 06/04/18 08:54 Polyethylene Glycol (Miralax) 17 gm DAILYPRN PRN ORAL Constipation 06/03/18 15:04 07/03/18 15:03 Pravastatin Sodium (Pravachol) 20 mg BEDTIME ORAL 06/03/18 21:00 07/03/18 20:59 06/03/18 20:55 Promethazine HCl/ Codeine (Phenergan with Codeine) 5 ml Q4H PRN ORAL For Cough 06/03/18 15:04 07/03/18 15:03 Ritonavir (Norvir) 100 mg DAILY ORAL 06/04/18 09:00 07/04/18 08:59 UNV Sodium Chloride 1,000 ml @ 100 mls/hr Q10H IV 06/03/18 18:45 07/03/18 18:44 06/04/18 05:29 Temazepam (Restoril) 15 mg HSPRN PRN ORAL Insomnia 06/03/18 21:00 06/10/18 20:59 Vancomycin HCl (Vanco rx to dose) 1 ea DAILY PRN MISC Per rx protocol 06/03/18 15:00 07/03/18 14:59 Vancomycin HCl 750 mg/Sodium Chloride 275 ml @ 183.333 mls/hr Q12H IVPB 06/04/18 05:00 06/09/18 04:59 06/04/18 05:30 Assessment/Plan Problem List: (1) Sepsis ICD Codes: A41.9 - Sepsis, unspecified organism SNOMED: 67631190 Qualifiers: Qualified Codes: A41.9 - Sepsis, unspecified organism (2) UTI (urinary tract infection) ICD Codes: N39.0 - Urinary tract infection, site not specified SNOMED: 16292720 Qualifiers: Qualified Codes: T83.510A - Infection and inflammatory reaction due to cystostomy catheter, initial encounter; N39.0 - Urinary tract infection, site not specified (3) Suprapubic catheter ICD Codes: Z93.59 - Other cystostomy status SNOMED: 194997855, 867030070 (4) HIV disease ICD Codes: B20 - Human immunodeficiency virus [HIV] disease SNOMED: 87687433 (5) Seizure disorder ICD Codes: G40.909 - Epilepsy, unspecified, not intractable, without status epilepticus SNOMED: 924465090 (6) Diabetes mellitus ICD Codes: E11.9 - Type 2 diabetes mellitus without complications SNOMED: 88061568 Assessment/Plan reyes culture iv abx check electrolytes sliding scale diabetic diet ID evaluation. Jaymie Bobo MD Jun 04, 2018 17:01
--- NOTE | 2018-06-04 19:23 | NUR ---
NURSE NOTES: had a bowel movement today, transfer order to [facility] in, pt aware.
--- NOTE | 2018-06-04 19:23 | NUR ---
HAND-OFF: Report given to abril Clements Rn.
--- NOTE | 2018-06-04 19:25 | NUR ---
NURSE NOTES: Received report from Leona García RN. Pt is resting in the chair next to his bed. No respiratory distress in RA. C/O R. arm pain of 5/10, will follow up for it. Bed alarm on, bed in lowest position, and breaks are engaged. IV sites are asymptomatic and patent. Call light and side table are within reach. Will follow plans of care.
[2018-06-04] MEDS ORDERED: Tubing IV Secondary IV ONE (20:40)
[2018-06-04 21:00] VITALS: BP 133/85
[2018-06-04] MEDS: Levemir Flexpen SUBQ SCH ×2 (21:00→21:08)
--- NOTE | 2018-06-04 21:18 | NUR ---
NURSE NOTES: Tele monitor #12 is off and returned to 2E station. Pt refused heparin after scanning and preparing, med undone and the med was discarded. Pt also refused to have Novolog and Levemir by saying " BS 134 is nothing. I will be ok without insulin." Will continue to monitor.
--- NOTE | 2018-06-04 22:06 | NUR ---
TRANSFER TO FLOOR: Patient transferred to [facility], per Dr. Dong w/o incident. Report given to Staci SULLIVAN. Belongings and medications given to Pt and RN, checked. Family and or S/O informed of transfer.
--- NOTE | 2018-06-04 22:22 | NUR ---
NURSE NOTES: TRANSFER FROM 2E VIA BED ACCOMPANIED BY STAFF,ALERT AND ORIENTED X4 SPEAK SOMALI BUT ABLE TO SPEAK URDU WELL.NO S/S OF DISTRESS OR PAIN @ THIS TIME.BED IN LOW POSITION CALL LIGHT WITHIN REACH .INSTRUCTED TO CALL FOR ANY ASSISTANCE IF NEEDED.WILL CONTINUE W/ PLAN OF CARE
[2018-06-04] MEDS ORDERED: Nitroglycerin Subl 0.4mg tab SL PRN (22:30)
[2018-06-04] MEDS ORDERED: Promethazine/Codeine 5ml UD ORAL PRN (23:15)
[2018-06-04] MEDS ORDERED: Albuterol/Ipratropium 3ml neb HHN PRN (23:15)
[2018-06-05] VITALS: BP 134/83
[2018-06-05] MEDS: Cefepime HCl 1 GM in D5W 55 ML IV SCH ×2 (00:32→12:17)
[2018-06-05] MEDS ORDERED: Mylanta II UD 30ml ORAL PRN (03:15)
[2018-06-05 04:00] VITALS: BP 148/74
[2018-06-05 04:22] LABS: BASOPHILS % (AUTO) 0.2 % (0.0-2.0); EOSINOPHILS % (AUTO) 0.3 % (0.0-3.0); HEMATOCRIT 31.5 % (42.0-52.0); HEMOGLOBIN 9.8 G/DL (14.2-18.0); LYMPHOCYTES % (AUTO) 9.5 % (20.0-45.0); MEAN CORPUSCULAR VOLUME 77 FL (80-99); MONOCYTES % (AUTO) 5.9 % (1.0-10.0); PLATELET COUNT 306 K/UL (150-450); RED BLOOD COUNT 4.09 M/UL (4.70-6.10); RED CELL DISTRIBUTION WIDTH 16.2 % (11.6-14.8)
[2018-06-05 04:37] LABS: ALANINE AMINOTRANSFERASE 17 U/L (12-78); ALBUMIN 3.1 G/DL (3.4-5.0); ALBUMIN/GLOBULIN RATIO 0.7 (1.0-2.7); ALKALINE PHOSPHATASE 203 U/L (46-116); ASPARTATE AMINO TRANSFERASE 11 U/L (15-37); BILIRUBIN,TOTAL 0.2 MG/DL (0.2-1.0); BLOOD UREA NITROGEN 4 mg/dL (7-18); CALCIUM 8.4 MG/DL (8.5-10.1); CARBON DIOXIDE 28 MMOL/L (21-32); CREATININE 0.7 MG/DL (0.55-1.30)
[2018-06-05 04:38] LABS: PHOSPHORUS 2.3 MG/DL (2.5-4.9)
[2018-06-05 04:47] LABS: CHLORIDE 101 MMOL/L (98-107); POTASSIUM 3.5 MMOL/L (3.5-5.1); SODIUM 136 MMOL/L (136-145)
[2018-06-05] MEDS ORDERED: Vancomycin 750 MG in NS 275 ML IVPB SCH (05:00)
[2018-06-05] MEDS ORDERED: Vancomycin 1gm/D5W 275ml IVPB SCH ×2 (05:00)
[2018-06-05] MEDS: Vancomycin 1gm/D5W 275ml IVPB SCH ×6 (05:47→22:25)
[2018-06-05] MEDS: NovoLOG Insulin Flexpen SUBQ SCH ×4 (06:48→21:00)
--- NOTE | 2018-06-05 07:40 | NUR ---
HAND-OFF: Report given to LIVE SULLIVAN.
--- NOTE | 2018-06-05 07:45 | NUR ---
NURSE NOTES: WALKING ROUNDS DONE WITH OUTGOING RN. PATIENT AWAKE UP TO BEDSIDE. QUESTIONS ANSWERED NEEDS MET. DISCUSSED PLAN OF CARE FOR THE DAY. SUPRAPUBIC CATHETER DRSG C/D/I. CATHETER PATENT AND DRAINING STRAW COLORED URINE. BED IN LOW AND LOCKED POSITION. MAUR LIGHT WITHIN REACH.
[2018-06-05 08:00] VITALS: BP 145/80
[2018-06-05] MEDS: NS w/KCl 20mEq 1,000 ML IV SCH ×2 (08:30→10:14)
[2018-06-05] MEDS: Phenytoin 100mg cap ORAL SCH ×2 (09:05→20:44)
[2018-06-05] MEDS: Heparin 5000 units/ml inj SUBQ SCH ×2 (09:06→20:54)
[2018-06-05] MEDS: Vitamin B-12 500mcg tab ORAL SCH (09:06)
--- NOTE | 2018-06-05 11:46 | Internal Med Progress Note ---
Subjective Physician Name Felix Dong Attending Physician Felix Dong MD Current Medications Medications (Trade) Dose Ordered Sig/Shailesh Route PRN Reason Start Time Stop Time Status Last Admin Dose Admin Acetaminophen (Tylenol) 650 mg Q4H PRN ORAL fever 06/04/18 23:15 07/03/18 15:01 06/05/18 09:05 Al Hydroxide/Mg Hydroxide (Mylanta II) 30 ml Q6H PRN ORAL dyspepsia 06/05/18 03:15 07/03/18 15:01 Albuterol/ Ipratropium (Albuterol/ Ipratropium) 3 ml Q4H PRN HHN Shortness of Breath 06/04/18 23:15 06/08/18 15:02 Cefepime HCl 1 gm/ Dextrose 55 ml @ 110 mls/hr Q12H IV 06/05/18 00:00 06/11/18 00:00 06/05/18 00:32 Cyanocobalamin (Vitamin B-12) 500 mcg DAILY ORAL 06/05/18 09:00 07/04/18 08:59 06/05/18 09:06 Darunavir (Prezista) 800 mg DAILY ORAL 06/05/18 09:00 07/04/18 08:59 UNV Dextrose (Dextrose 50%) 25 ml Q30M PRN IV Hypoglycemia 06/04/18 22:45 07/03/18 18:44 Dextrose (Dextrose 50%) 50 ml Q30M PRN IV Hypoglycemia 06/04/18 22:45 07/03/18 18:44 Emtricitabine/ Tenofovir (Truvada 200/ 300mg) 1 tab DAILY ORAL 06/05/18 09:00 07/04/18 08:59 UNV Heparin Sodium (Porcine) (Heparin 5000 units/ml) 5,000 units EVERY 12 HOURS SUBQ 06/05/18 09:00 07/03/18 20:59 06/05/18 09:06 Insulin Aspart (NovoLOG) BEFORE MEALS AND HS SUBQ 06/05/18 06:30 07/03/18 20:59 06/05/18 06:48 Insulin Detemir (Levemir) 10 units BEDTIME SUBQ 06/05/18 21:00 07/03/18 20:59 Metformin HCl (Glucophage) 1,000 mg BIDLS ORAL 06/05/18 11:30 07/04/18 11:29 Nitroglycerin (Ntg) 0.4 mg Q5M PRN SL Prn Chest Pain 06/04/18 22:30 07/03/18 15:02 Ondansetron HCl (Zofran) 4 mg Q6H PRN IVP Nausea & Vomiting 06/05/18 03:15 07/03/18 15:02 Phenytoin (Dilantin) 200 mg EVERY 12 HOURS ORAL 06/05/18 09:00 07/03/18 20:59 06/05/18 09:05 Polyethylene Glycol (Miralax) 17 gm DAILYPRN PRN ORAL Constipation 06/05/18 15:15 07/03/18 15:03 Pravastatin Sodium (Pravachol) 20 mg BEDTIME ORAL 06/05/18 21:00 07/03/18 20:59 Promethazine HCl/ Codeine (Phenergan with Codeine) 5 ml Q4H PRN ORAL For Cough 06/04/18 23:15 07/03/18 15:03 Ritonavir (Norvir) 100 mg DAILY ORAL 06/05/18 09:00 07/04/18 08:59 UNV Sodium Chloride 1,000 ml @ 100 mls/hr Q10H IV 06/04/18 22:30 07/03/18 18:44 06/05/18 10:14 Temazepam (Restoril) 15 mg HSPRN PRN ORAL Insomnia 06/05/18 21:00 06/10/18 20:59 Vancomycin HCl (Vanco rx to dose) 1 ea DAILY PRN MISC Per rx protocol 06/05/18 09:00 07/03/18 14:59 Vancomycin HCl 1 gm/Dextrose 275 ml @ 183.708 mls/hr Q8H IVPB 06/05/18 06:00 06/10/18 05:59 06/05/18 05:47 Allergies: Coded Allergies: No Known Allergies (Unverified , 06/03/18) Subjective Awake, alert, responsive, sitting up in a chair, feeling much better. reduced WBCs 13. Objective Last Vital Signs Date Time Temp Pulse Resp B/P (MAP) Pulse Ox O2 Delivery O2 Flow Rate FiO2 06/05/18 09:35 98.7 06/05/18 09:00 Room Air 06/05/18 08:00 98 19 145/80 (101) 98 06/05/18 07:03 21 06/03/18 13:48 3.0 Laboratory Tests Test 06/05/18 04:11 White Blood Count 13.0 K/UL (4.8-10.8) H Red Blood Count 4.09 M/UL (4.70-6.10) L Hemoglobin 9.8 G/DL (14.2-18.0) L Hematocrit 31.5 % (42.0-52.0) L Mean Corpuscular Volume 77 FL (80-99) L Mean Corpuscular Hemoglobin 24.1 PG (27.0-31.0) L Mean Corpuscular Hemoglobin Concent 31.3 G/DL (32.0-36.0) L Red Cell Distribution Width 16.2 % (11.6-14.8) H Platelet Count 306 K/UL (150-450) Mean Platelet Volume 4.9 FL (6.5-10.1) L Neutrophils (%) (Auto) 84.0 % (45.0-75.0) H Lymphocytes (%) (Auto) 9.5 % (20.0-45.0) L Monocytes (%) (Auto) 5.9 % (1.0-10.0) Eosinophils (%) (Auto) 0.3 % (0.0-3.0) Basophils (%) (Auto) 0.2 % (0.0-2.0) Sodium Level 136 MMOL/L (136-145) Potassium Level 3.5 MMOL/L (3.5-5.1) Chloride Level 101 MMOL/L (98-107) Carbon Dioxide Level 28 MMOL/L (21-32) Blood Urea Nitrogen 4 mg/dL (7-18) L Creatinine 0.7 MG/DL (0.55-1.30) Estimat Glomerular Filtration Rate > 60 mL/min (>60) Glucose Level 180 MG/DL (74-106) H Calcium Level 8.4 MG/DL (8.5-10.1) L Phosphorus Level 2.3 MG/DL (2.5-4.9) L Magnesium Level 1.8 MG/DL (1.8-2.4) Total Bilirubin 0.2 MG/DL (0.2-1.0) Aspartate Amino Transf (AST/SGOT) 11 U/L (15-37) L Alanine Aminotransferase (ALT/SGPT) 17 U/L (12-78) Alkaline Phosphatase 203 U/L (46-116) H Total Protein 7.8 G/DL (6.4-8.2) Albumin 3.1 G/DL (3.4-5.0) L Globulin 4.7 g/dL Albumin/Globulin Ratio 0.7 (1.0-2.7) L Vancomycin Level Trough 6.8 ug/mL (5.0-12.0) Microbiology Date/Time Source Procedure Growth Status 06/03/18 11:50 Blood Blood Culture - Preliminary NO GROWTH AFTER 24 HOURS Resulted 06/03/18 11:40 Blood Blood Culture - Preliminary NO GROWTH AFTER 24 HOURS Resulted 06/03/18 17:20 Sputum Gram Stain - Final Complete 06/03/18 17:20 Sputum Sputum Culture - Final NORMAL UPPER RESPIRATORY RAMU PRESENT Complete 06/03/18 13:00 Nasal Nares MRSA Culture - Final Staphylococcus Aureus - Mrsa Complete 06/03/18 11:40 Urine,Suprapubic Urine Culture - Preliminary Staphylococcus Species Gram Negative Bacillus 1 Resulted 06/03/18 13:00 Rectum VRE Culture - Final NO VANCOMYCIN RESISTANT ENTEROCOCCUS ... Complete 06/03/18 13:00 Rectum - Final NO CARBAPENEM-RESISTANT ENTEROBACTERI... Complete Intake and Output 06/04/18 06/05/18 18:59 06:59 Intake Total 643.333 ml 533.708 ml Output Total 3400 ml Balance 643.333 ml -2866.292 ml Intake Oral 360 ml 240 ml IV Total 283.333 ml 293.708 ml Output Urine Total 3400 ml # Bowel Movements 1 Objective GENERAL: awake and responsive, no acute distress. HEAD AND NECK: Pupils are reactive to light. Extraocular movements intact. NECK: Supple. No JVD. LUNGS: Good air entry. No wheezing or rales. Decreased in the bases. HEART: S1, S2. Regular rhythm. No murmurs or gallops. ABDOMEN: Soft, nontender, nondistended. Suprapubic catheter was noted. No rebound tenderness. No fluid shift. EXTREMITIES: No cyanosis, clubbing, or edema. NEUROLOGIC: [employer] II through XII grossly intact. Moves all four extremities. moving all the extremities equally and 5/5 motor. Assessment/Plan Assessment/Plan ASSESSMENT: 1. Sepsis, most likely secondary to urinary tract infection. 2. Hyponatremia. 3. Hypokalemia. 4. Dehydration. 5. Anemia. 6. Diabetes type 1. 7. Hypertension. 8. Seizure disorder. 9. History of urine retention status post suprapubic catheter placement. PLAN: 1. Admit the patient to monitored unit. 2. We will follow up laboratory intravenous hydration. 3. Code status is Full Code at this time. 4. DVT prophylaxis with heparin subcutaneous. 5. Broad-spectrum antibiotic: cefepime, Vanco IV 6. Monitor cultures. 7. We tried to obtain the list of medication from care home and [facility]k with sliding scale. Felix Dong M.D. Felix Dong MD Jun 05, 2018 11:46
[2018-06-05 12:00] VITALS: BP 124/79
[2018-06-05] MEDS: metFORMIN 500mg tab ORAL SCH ×2 (12:16→16:54)
--- NOTE | 2018-06-05 13:38 | NUR ---
NURSE NOTES: PATIENT REMAINS STABLE. UP TO CHAIR FOR MEALS. DENIES PAIN AT THIS TIME. CALL LIGHT WITHIN REACH.
[2018-06-05] MEDS ORDERED: Miralax 17gm pkt ORAL PRN (15:15)
[2018-06-05] MEDS: Ritonavir 100mg tab ORAL SCH (15:56)
[2018-06-05 16:00] VITALS: BP 124/76
--- NOTE | 2018-06-05 19:34 | NUR ---
HAND-OFF: Report given to AURELIO SULLIVAN.
[2018-06-05 20:00] VITALS: BP 104/68
[2018-06-05] MEDS ORDERED: Levemir Flexpen SUBQ SCH (21:00)
[2018-06-06] VITALS: BP 120/70
[2018-06-06] MEDS: Cefepime HCl 1 GM in D5W 55 ML IV SCH (00:07)
[2018-06-06 04:00] VITALS: BP 134/71
[2018-06-06] MEDS: NS w/KCl 20mEq 1,000 ML IV SCH ×2 (04:30→14:30)
[2018-06-06] MEDS: Vancomycin 1gm/D5W 275ml IVPB SCH ×2 (05:59)
[2018-06-06] MEDS: NovoLOG Insulin Flexpen SUBQ SCH ×2 (06:42→11:51)
--- NOTE | 2018-06-06 07:35 | NUR ---
NURSE NOTES: Received patient on bed, awake. Subrapubic catheter in place. IV site intact and patent. Bed in low and lockd position,c all light in reach. No signs of respiratory distress or pain. Room board updated, will continue to monitor.
[2018-06-06 08:00] VITALS: BP 122/71
--- NOTE | 2018-06-06 08:04 | NUR ---
NURSE NOTES: Bhargavi from [employer] stated patien tis positive for MDR urine.
--- NOTE | 2018-06-06 08:13 | NUR ---
NURSE NOTES: Left message for MD Casas in regards to positive MDR result. Addendum: 06/06/18 at 0824 by LIANA ACHARYA RN RN MD Casas returned call and stated he will be in today to see patient.
[2018-06-06] MEDS: Ritonavir 100mg tab ORAL SCH (08:33)
[2018-06-06] MEDS: Vitamin B-12 500mcg tab ORAL SCH (08:33)
[2018-06-06] MEDS: Phenytoin 100mg cap ORAL SCH (08:34)
[2018-06-06] MEDS: Heparin 5000 units/ml inj SUBQ SCH (08:34)
[2018-06-06] MEDS ORDERED: NITROFURANTOIN100 M2 ORAL (09:02)
--- NOTE | 2018-06-06 09:03 | Internal Med Progress Note ---
Subjective Physician Name Felix Dong Attending Physician Felix Dong MD Current Medications Medications (Trade) Dose Ordered Sig/Shailesh Route PRN Reason Start Time Stop Time Status Last Admin Dose Admin Acetaminophen (Tylenol) 650 mg Q4H PRN ORAL fever 06/04/18 23:15 07/03/18 15:01 06/05/18 09:05 Al Hydroxide/Mg Hydroxide (Mylanta II) 30 ml Q6H PRN ORAL dyspepsia 06/05/18 03:15 07/03/18 15:01 Albuterol/ Ipratropium (Albuterol/ Ipratropium) 3 ml Q4H PRN HHN Shortness of Breath 06/04/18 23:15 06/08/18 15:02 Cefepime HCl 1 gm/ Dextrose 55 ml @ 110 mls/hr Q12H IV 06/05/18 00:00 06/11/18 00:00 06/06/18 00:07 Cyanocobalamin (Vitamin B-12) 500 mcg DAILY ORAL 06/05/18 09:00 07/04/18 08:59 06/06/18 08:33 Darunavir (Prezista) 800 mg DAILY ORAL 06/05/18 15:00 07/04/18 14:59 06/06/18 08:33 Dextrose (Dextrose 50%) 25 ml Q30M PRN IV Hypoglycemia 06/04/18 22:45 07/03/18 18:44 Dextrose (Dextrose 50%) 50 ml Q30M PRN IV Hypoglycemia 06/04/18 22:45 07/03/18 18:44 Emtricitabine/ Tenofovir (Truvada 200/ 300mg) 1 tab DAILY ORAL 06/05/18 15:00 07/05/18 14:59 06/06/18 08:33 Heparin Sodium (Porcine) (Heparin 5000 units/ml) 5,000 units EVERY 12 HOURS SUBQ 06/05/18 09:00 07/03/18 20:59 06/06/18 08:34 Insulin Aspart (NovoLOG) BEFORE MEALS AND HS SUBQ 06/05/18 06:30 07/03/18 20:59 06/06/18 06:42 Insulin Detemir (Levemir) 10 units BEDTIME SUBQ 06/05/18 21:00 07/03/18 20:59 Metformin HCl (Glucophage) 1,000 mg BIDLS ORAL 06/05/18 11:30 07/04/18 11:29 06/05/18 16:54 Nitroglycerin (Ntg) 0.4 mg Q5M PRN SL Prn Chest Pain 06/04/18 22:30 07/03/18 15:02 Ondansetron HCl (Zofran) 4 mg Q6H PRN IVP Nausea & Vomiting 06/05/18 03:15 07/03/18 15:02 Phenytoin (Dilantin) 200 mg EVERY 12 HOURS ORAL 06/05/18 09:00 07/03/18 20:59 06/06/18 08:34 Polyethylene Glycol (Miralax) 17 gm DAILYPRN PRN ORAL Constipation 06/05/18 15:15 07/03/18 15:03 Pravastatin Sodium (Pravachol) 20 mg BEDTIME ORAL 06/05/18 21:00 07/03/18 20:59 06/05/18 20:46 Promethazine HCl/ Codeine (Phenergan with Codeine) 5 ml Q4H PRN ORAL For Cough 06/04/18 23:15 07/03/18 15:03 Ritonavir (Norvir) 100 mg DAILY ORAL 06/05/18 15:00 07/04/18 14:59 06/06/18 08:33 Sodium Chloride 1,000 ml @ 100 mls/hr Q10H IV 06/04/18 22:30 07/03/18 18:44 06/06/18 04:30 Temazepam (Restoril) 15 mg HSPRN PRN ORAL Insomnia 06/05/18 21:00 06/10/18 20:59 Vancomycin HCl (Vanco rx to dose) 1 ea DAILY PRN MISC Per rx protocol 06/05/18 09:00 07/03/18 14:59 Vancomycin HCl 1 gm/Dextrose 275 ml @ 183.708 mls/hr Q8H IVPB 06/05/18 06:00 06/10/18 05:59 06/06/18 05:59 Allergies: Coded Allergies: No Known Allergies (Unverified , 06/03/18) Subjective Awake, alert, responsive, sitting up in a chair, feeling much better. Objective Last Vital Signs Date Time Temp Pulse Resp B/P (MAP) Pulse Ox O2 Delivery O2 Flow Rate FiO2 06/06/18 08:00 98.1 75 18 122/71 (88) 98 06/06/18 07:56 Room Air 21 06/03/18 13:48 3.0 Microbiology Date/Time Source Procedure Growth Status 06/03/18 11:50 Blood Blood Culture - Preliminary NO GROWTH AFTER 48 HOURS Resulted 06/03/18 11:40 Blood Blood Culture - Preliminary NO GROWTH AFTER 48 HOURS Resulted 06/03/18 17:20 Sputum Gram Stain - Final Complete 06/03/18 17:20 Sputum Sputum Culture - Final NORMAL UPPER RESPIRATORY RAMU PRESENT Complete 06/03/18 13:00 Nasal Nares MRSA Culture - Final Staphylococcus Aureus - Mrsa Complete 06/03/18 11:40 Urine,Suprapubic Urine Culture - Preliminary Staphylococcus Aureus - Mrsa Pseudomonas Aeruginosa - Mdr Resulted 06/03/18 13:00 Rectum VRE Culture - Final NO VANCOMYCIN RESISTANT ENTEROCOCCUS ... Complete 06/03/18 13:00 Rectum - Final NO CARBAPENEM-RESISTANT ENTEROBACTERI... Complete Intake and Output 06/05/18 06/06/18 19:00 07:00 Intake Total 1530 ml 100 ml Output Total 2600 ml 1050 ml Balance -1070 ml -950 ml Intake Oral 300 ml IV Total 1230 ml 100 ml Output Urine Total 2600 ml 1050 ml Objective GENERAL: awake and responsive, no acute distress. HEAD AND NECK: Pupils are reactive to light. Extraocular movements intact. NECK: Supple. No JVD. LUNGS: Good air entry. No wheezing or rales. Decreased in the bases. HEART: S1, S2. Regular rhythm. No murmurs or gallops. ABDOMEN: Soft, nontender, nondistended. Suprapubic catheter was noted. No rebound tenderness. No fluid shift. EXTREMITIES: No cyanosis, clubbing, or edema. NEUROLOGIC: AUTOMOTIVE METALSMITH II through XII grossly intact. Moves all four extremities. moving all the extremities equally and 5/5 motor. Assessment/Plan Assessment/Plan ASSESSMENT: 1. Sepsis, most likely secondary to urinary tract infection. 2. Hyponatremia. 3. Hypokalemia. 4. Dehydration. 5. Anemia. 6. Diabetes type 1. 7. Hypertension. 8. Seizure disorder. 9. History of urine retention status post suprapubic catheter placement. PLAN: 1. in Medical Unit. 2. We will follow up laboratory intravenous hydration. 3. Code status is Full Code at this time. 4. DVT prophylaxis with heparin subcutaneous. 5. Broad-spectrum antibiotic: cefepime, Vanco IV 6. Monitor cultures. 7. We tried to obtain the list of medication from senior living and Accu-Chek with sliding scale. 8. DC to SNF today. Felix Dong M.D. Felix Dong MD Jun 06, 2018 09:03
--- NOTE | 2018-06-06 09:58 | Infectious Diseases Prog Note ---
Subjective Allergies: Coded Allergies: No Known Allergies (Unverified , 06/03/18) Subjective Patient now afebrile Urine Cx growing MDR Leukocytosis resolving Objective Vital Signs Last 24 Hour Vital Signs Date Time Temp Pulse Resp B/P (MAP) Pulse Ox O2 Delivery O2 Flow Rate FiO2 06/06/18 08:00 98.1 75 18 122/71 (88) 98 06/06/18 07:56 73 18 Room Air 21 06/06/18 04:00 97.0 74 18 134/71 (92) 06/06/18 00:00 98.4 71 18 120/70 (87) 97 06/05/18 21:00 Room Air 06/05/18 20:00 98.2 97 18 104/68 (80) 97 06/05/18 19:59 78 18 Room Air 21 06/05/18 16:00 97.0 76 19 124/76 (92) 100 06/05/18 12:00 97.9 67 20 124/79 (94) 100 Height (Feet): 5 Height (Inches): 2.00 Weight (Pounds): 123 Objective 53 yo male with PMHx of HIV, HTN, DM and Seizure disorder and suprapubic catheter. He was brought to the ED from his longterm for Fever with cough chills and muscle aches. Sepsis - Proabable UTI vs viral infection. WBCs 20, Lac 2.2 UA positive Suprapubic cath Fever to 102 Urine Cx MRSA and P.a. (I to cefepime but rest of toan still pending) HIV On Truvada, Prezista and Norvir HTN DM Seizure disorder PLAN - Continue Vancomycin #3 and cefepime #3 ( started High does 2g 06/06/18 for I P.a.) - f/u Urine P.a. Sensi - Monitor clinically - Monitor CBC and Temps We will continue to follow the patient during this hospitalization. Microbiology Date/Time Source Procedure Growth Status 06/03/18 11:50 Blood Blood Culture - Preliminary NO GROWTH AFTER 48 HOURS Resulted 06/03/18 11:40 Blood Blood Culture - Preliminary NO GROWTH AFTER 48 HOURS Resulted 06/03/18 17:20 Sputum Gram Stain - Final Complete 06/03/18 17:20 Sputum Sputum Culture - Final NORMAL UPPER RESPIRATORY RAMU PRESENT Complete 06/03/18 13:00 Nasal Nares MRSA Culture - Final Staphylococcus Aureus - Mrsa Complete 06/03/18 11:40 Urine,Suprapubic Urine Culture - Preliminary Staphylococcus Aureus - Mrsa Pseudomonas Aeruginosa - Mdr Resulted 06/03/18 13:00 Rectum VRE Culture - Final NO VANCOMYCIN RESISTANT ENTEROCOCCUS ... Complete 06/03/18 13:00 Rectum - Final NO CARBAPENEM-RESISTANT ENTEROBACTERI... Complete Current Medications Medications (Trade) Dose Ordered Sig/Shailesh Route PRN Reason Start Time Stop Time Status Last Admin Dose Admin Acetaminophen (Tylenol) 650 mg Q4H PRN ORAL fever 06/04/18 23:15 07/03/18 15:01 06/05/18 09:05 Al Hydroxide/Mg Hydroxide (Mylanta II) 30 ml Q6H PRN ORAL dyspepsia 06/05/18 03:15 07/03/18 15:01 Albuterol/ Ipratropium (Albuterol/ Ipratropium) 3 ml Q4H PRN HHN Shortness of Breath 06/04/18 23:15 06/08/18 15:02 Cefepime HCl 1 gm/ Dextrose 55 ml @ 110 mls/hr Q12H IV 06/05/18 00:00 06/11/18 00:00 06/06/18 00:07 Cyanocobalamin (Vitamin B-12) 500 mcg DAILY ORAL 06/05/18 09:00 07/04/18 08:59 06/06/18 08:33 Darunavir (Prezista) 800 mg DAILY ORAL 06/05/18 15:00 07/04/18 14:59 06/06/18 08:33 Dextrose (Dextrose 50%) 25 ml Q30M PRN IV Hypoglycemia 06/04/18 22:45 07/03/18 18:44 Dextrose (Dextrose 50%) 50 ml Q30M PRN IV Hypoglycemia 06/04/18 22:45 07/03/18 18:44 Emtricitabine/ Tenofovir (Truvada 200/ 300mg) 1 tab DAILY ORAL 06/05/18 15:00 07/05/18 14:59 06/06/18 08:33 Heparin Sodium (Porcine) (Heparin 5000 units/ml) 5,000 units EVERY 12 HOURS SUBQ 06/05/18 09:00 07/03/18 20:59 06/06/18 08:34 Insulin Aspart (NovoLOG) BEFORE MEALS AND HS SUBQ 06/05/18 06:30 07/03/18 20:59 06/06/18 06:42 Insulin Detemir (Levemir) 10 units BEDTIME SUBQ 06/05/18 21:00 07/03/18 20:59 Metformin HCl (Glucophage) 1,000 mg BIDLS ORAL 06/05/18 11:30 07/04/18 11:29 06/05/18 16:54 Nitroglycerin (Ntg) 0.4 mg Q5M PRN SL Prn Chest Pain 06/04/18 22:30 07/03/18 15:02 Ondansetron HCl (Zofran) 4 mg Q6H PRN IVP Nausea & Vomiting 06/05/18 03:15 07/03/18 15:02 Phenytoin (Dilantin) 200 mg EVERY 12 HOURS ORAL 06/05/18 09:00 07/03/18 20:59 06/06/18 08:34 Polyethylene Glycol (Miralax) 17 gm DAILYPRN PRN ORAL Constipation 06/05/18 15:15 07/03/18 15:03 Pravastatin Sodium (Pravachol) 20 mg BEDTIME ORAL 06/05/18 21:00 07/03/18 20:59 06/05/18 20:46 Promethazine HCl/ Codeine (Phenergan with Codeine) 5 ml Q4H PRN ORAL For Cough 06/04/18 23:15 07/03/18 15:03 Ritonavir (Norvir) 100 mg DAILY ORAL 06/05/18 15:00 07/04/18 14:59 06/06/18 08:33 Sodium Chloride 1,000 ml @ 100 mls/hr Q10H IV 06/04/18 22:30 07/03/18 18:44 06/06/18 04:30 Temazepam (Restoril) 15 mg HSPRN PRN ORAL Insomnia 06/05/18 21:00 06/10/18 20:59 Vancomycin HCl (Vanco rx to dose) 1 ea DAILY PRN MISC Per rx protocol 06/05/18 09:00 07/03/18 14:59 Vancomycin HCl 1 gm/Dextrose 275 ml @ 183.708 mls/hr Q8H IVPB 06/05/18 06:00 06/10/18 05:59 06/06/18 05:59 Amos Casas MD Jun 06, 2018 09:58
[2018-06-06] MEDS ORDERED: CEFEPIME-D2 GM/50 ML IVPB ×2 (10:55→10:58)
[2018-06-06] MEDS ORDERED: Cefepime HCl 2 GM in D5W 55 ML IVPB SCH (11:00)
[2018-06-06] MEDS ORDERED: VANCOMYCIN HCL1 G1 IV (11:10)
[2018-06-06] MEDS: metFORMIN 500mg tab ORAL SCH (11:20)
--- NOTE | 2018-06-06 11:21 | NUR ---
SWALLOW EVAL AND D/C SUMMARY BY ONCOLOGY RESEARCH RN: REFERRED BY DR JARQUIN FOR A SWALLOW EVAL (SEE FULL REPORT IN [facility] ACTIVITY SECTION COMPLETED POST CHART REVIEW). DYSPHAGIA RISK FACTORS FOR THIS 53 Y.O. CROATIAN-SPEAKING ([facility]) MALE: ACUTE SEPSIS POSS DUE TO UTI HAS BLADDER ISSUES, FEVER, MIN COUGH, HYPONATREMIA, DEHYDRATION, CXR BILATERAL BRONCHIAL WALL THICKENING SUSPECT R PERIHILAR ATELECTASIS OR CHRONIC SCARRING. H/O UNSPECIFIED DEMENTIA, HIV, EPILEPSY, DM1, CHRONIC PAIN SYNDROME, NO SMOKING, PEPTIC ULCER. RELEVANT MEDS: INSULIN, DILANTIN, MYLANTA II, AND ZOFRAN ON ADVANCE DIRECTIVE OK FOR TUBE FEEDING IF NEEDS. AT SNF, ON A [facility] [place], OPERATED BY [facility] REGULAR TEXTURE LARGE PORTION DIET AND THIN LIQUIDS WITH SUGARFREE HPN WITH LUNCH. [facility] AND THIN LIQU[facility] DIET WITH GOOD INTAKE 75-100%. PATIENT DENIES SWALLOWING PROBLEMS BUT ONLY HAS 2 LOWER INCISORS AND NO DENTURES. PER LIANA SULLIVAN, NO OVERT S/S OF ASP WITH CURRENT MEAL AND TAKES MEDS WHOLE WITH WATER W/O OVERT ASPIRATION. ALERT, ORIENTED TO PLACE/TIME/SELF/SITUATION, AND ON ROOM AIR. INITIAL IMPRESSIONS NO S/S OF A SIGNIFICANT DYSPHAGIA GROSSLY FUNCTIONAL SWALLOW WITH THIN LIQUIDS SEQUENTIAL SIPS VIA CUP (3 OZ ANDREW SWALLOW PROTOCOL) AND PUREED TSP. SLOWER CHEWING WITH MASTICATED SOLIDS (1/2 CRACKER) BUT MIN DENTITION AND NO DENTURES. NO OVERT S/S OF ASPIRATION AND ? IF HAS SILENT ASPIRATION RISK (UNSPECIFIED DEMENTIA IN CHART BUT ORIENTED X4 AND ABLE TO EXPRESS NEEDS IN CROATIAN). RECOMMENDATIONS AND PLAN: UPGRADE TO [facility] SOFT CHOPPED DIET AND THIN LIQUIDS WITH GENERAL POSTED ASP PRECAUTIONS. NO NEED FOR MOD BARIUM SWALLOW STUDY AND NO NEED FOR SKILLED ST F/UP AT THIS TIME. F/UP WITH DIET UPGRADE TOLERATED AT [facility]. D/W LIANA SULLIVAN, AND LEFT MESSAGE WITH DR. JARQUIN PATIENT TO BE D/C TODAY
[2018-06-06 12:00] VITALS: BP 122/71
--- NOTE | 2018-06-06 13:35 | NUR ---
DISCHARGE PLANNED PT. DC TO [facility] [address] LONG-TERM T- FOR NURSE TO NURSE REPORT [facility] WILL JAMMER OPERATOR AT 1430
[2018-06-06] MEDS ORDERED: non IVPB (13:53)
--- NOTE | 2018-06-06 14:21 | NUR ---
NURSE NOTES: Report given over the phone to licensed nurse Yakelin at [facility].
--- NOTE | 2018-06-06 14:44 | NUR ---
NURSE NOTES: Patient discharged. ID band removed and disposed of. Patient belongings inventoried and sent with patient. Patient will keep suprapubic catheter and IV on left forearm for antibiotic treatment at [place]. Patient kept comfortable at all times and patient needs met.
[2018-06-06] MEDS ORDERED: Vancomycin 750mg/NS 275ml IVPB SCH ×2 (17:00)
--- NOTE | 2018-06-07 18:37 | Cardiology Report ---
APPROVED REPORT EKG Measurement Heart [id number] Sinus tachycardia Possible Inferior infarct, age undetermined Abnormal ECG
--- NOTE | 2018-06-08 11:04 | Discharge Summary ---
Discharge Summary Discharge Summary _ DATE OF ADMISSION: 06/03/2018 DATE OF DISCHARGE: 06/06/2018 DISCHARGED BY: Dr. Dong REASON FOR ADMISSION: 53 years old male, resident of alf facility, with past medical history of diabetes mellitus, seizure disorder, HIV, was sent from the alf facility for evaluation of fever. Upon evaluation in ED patient was tachycardic with heart rate 124 and fever 101.8. Laboratory work revealed significant leukocytosis WBC 20.1, hemoglobin 10.3, hematocrit 32.5. Sodium 126, potassium 3.2. Stable renal parameters. Glucose 249. Lactic acid 2.2. Stable LFT. Alkaline phosphatase 285. Troponin negative. Pro BNP 167. Urinalysis revealed evidence of pyuria, +2 leukocyte esterase, +2 protein, and occasional bacteria. Chest x-ray demonstrated bilateral bronchial wall thickening, suspecting chronic right perihilar atelectasis, no acute process otherwise. Septic workup was initiated. Patient received fluid challenge. Lactic acid improved. Heart rate improved, but patient still continued to be tachycardic. Patient was pancultured, started on empiric antibiotic and admitted to telemetry floor for further management. CONSULTANTS: pulmonary Dr. Bobo ID specialist Dr. Patterson [facility] COURSE: Patient admitted to telemetry floor. Patient started on empiric antibiotics and intravenous hydration. ID specialist closely followed. Blood cultures were negative. Urine culture revealed MRSA and Pseudomonas aeruginosa multidrug-resistant. Sputum culture was negative. Infectious disease specialist directed antibiotics management. ART was continued. Blood pressure was closely monitored and remained stable. Blood sugar was managed with long-acting Levemir and metformin ; sliding scale of short acting insulin was on board to use as needed. Statin was continued. DVT prophylaxis provided. Supportive care provided. Pain management addressed. Renal parameters and electrolytes were closely monitored. Electrolytes further corrected as needed. Nephrotoxins were avoided. Hemoglobin and hematocrit were closely monitored with goal to keep hemoglobin above 7. Hemoglobin and hematocrit remained at the baseline, prior to discharge hemoglobin 9.8, hematocrit 31.5. Bowel regimen instituted. Dilantin continued. Seizure precaution maintained. No evidence of seizure activity while in the hospital. Patient clinically improved Leukocytosis trending down. Fevers resolved. Patient was ready for transfer back to alf [facility] for continuation of care. FINAL DIAGNOSES: Sepsis, most likely secondary to urinary tract infection Urinary tract infection with MRSA and Pseudomonas aeruginosa MDR HIV status Dehydration Hyponatremia Hypokalemia Diabetes mellitus Hypertension Seizure disorder Anemia History of urinary retention , status post suprapubic catheter. DISCHARGE MEDICATIONS: See Medication Reconciliation list. DISCHARGE INSTRUCTIONS: Patient was discharged to the alf facility. Follow up with medical doctor at the facility. I have been assigned to dictate discharge summary for this account. I was not involved in the patient's management. Maricruz Granger NP Jun 08, 2018 11:04
== END 2018-06-06 14:41 | DRG 892 ==
LOC: EDBD 11:08 → EMR 11:30 → EDBEDREQ 11:50 → 2E 12:00 → EDBEDREQ 12:30 → 2E 06-04 18:08 → 4E 06-04 21:51
DX: A41.9 Sepsis, unspecified organism (principal); B20 Human immunodeficiency virus [HIV] disease; E87.1 Hypo-osmolality and hyponatremia; B96.5 Pseudomonas (aeruginosa) (mallei) (pseudomallei) as the cause of diseases classified elsewhere; Z93.59 Other cystostomy status; E10.9 Type 1 diabetes mellitus without complications; B95.62 Methicillin resistant Staphylococcus aureus infection as the cause of diseases classified elsewhere; D64.9 Anemia, unspecified; E86.0 Dehydration; N39.0 Urinary tract infection, site not specified; G40.909 Epilepsy, unspecified, not intractable, without status epilepticus; I10 Essential (primary) hypertension; E87.6 Hypokalemia; Z16.24 Resistance to multiple antibiotics
CPT/HCPCS: 36415; 71045; 80053; 80069; 80202; 81003; 82550; 82962; 83605; 83735; 83880; 84100; 84484; 85007; 85025; 85610; 85730; 87040; 87070; 87081; 87086; 87181; 87205; 93005; 94664; 96361; 96365; 96366; 96368; 99285; J1815; S5561

== ENCOUNTER 2018-11-27 01:36 | Emergency (ER) | payer MEDICAID, OTHER ==
[~2018-11-27] VITALS: Ht 157.5 cm; Wt 55.8 kg
[~2018-11-27 01:36] MED LIST: ACETAMINOPHEN325 M1 ORAL; ACTOS30 MG ORAL; AMITRIPTYLINE25 MG ORAL; BACTRIM DS TAB1 EAC1 ORAL; BISACODYL10 M1 RC; CEFEPIME-D2 GM/50 ML IVPB; COLACE100 MG ORAL; DILANTIN100 MG ORAL; FLEET ENEMA133 ML RECTAL; GABAPENTIN300 MG ORAL; GUAIFENESI100 MG/5 M ORAL; LANTUS SOL100 UNIT/1 SUBQ; METFORMIN HCL1000 M1 ORAL; MILK OF MA400 MG/51 ORAL; NITROFURANTOIN100 M2 ORAL; NORVIR100 MG ORAL; NOVOLIN N100 UNIT/1 SUBQ; PRAVASTATIN SOD20 M1 ORAL; PREZISTA800 MG ORAL; TRUVADA 200 MG1 EAC1 ORAL; VANCOMYCIN HCL1 G1 IV; VITAMIN B-12500 MCG ORAL; VITAMIN D250000 UNI1 ORAL; non IVPB
--- NOTE | 2018-11-27 01:42 | NUR ---
ED Nurse Note: pt brought in by ambulance from [facility] for S/P fall with laceration to right eyebrow area. no active bleeding noted. denies any headache. pt is alert x3, ambulatory, VSS
[2018-11-27 01:44] VITALS: BP 126/75
[2018-11-27] MEDS ORDERED: Lidocaine 1% 10mg/ml/Epi 0.005mg/ml 10ml vial INJ ONE (01:45)
[2018-11-27] MEDS ORDERED: Tetanus/Diptheria/Pertussis IM ONE (01:45)
--- NOTE | 2018-11-27 01:45 | Emergency Room Report ---
History of Present Illness General Chief Complaint: Laceration Source: Patient Present Illness HPI Disclaimer: Please note that this report is being documented using DRAGON technology. This can lead to erroneous entry secondary to incorrect interpretation by the dictating instrument. HPI: 54-year-old male with a history of diabetes, seizure disorder, HIV sent from senior care facility for evaluation of mechanical fall. The patient states his right leg gave out as it usually does causing him to fall to the floor sustaining a minor laceration over the right eyebrow. He denies loss of consciousness, vomiting, vision changes or neck or back pain. No reported seizure-like activity. He was sent over for evaluation and laceration repair. Heparin listed in his transfer paperwork for DVT prophylaxis but otherwise does not take anticoagulants. PMH: Diabetes, seizure disorder, HIV PSH: See chart Allergies: None listed Social Hx: Denies Allergies: Coded Allergies: No Known Allergies (Unverified , 06/03/18) Nursing Documentation-PMH Past Medical History: No History, Except For Hx Hypertension: Yes Hx Diabetes: Yes Hx Cancer: No Hx Gastrointestinal Problems: No Hx Neurological Problems: No Hx Seizures: Yes Review of Systems All Other Systems: negative except mentioned in HPI Physical Exam Vital Signs Date Time Temp Pulse Resp B/P (MAP) Pulse Ox O2 Delivery O2 Flow Rate FiO2 11/27/18 01:37 97.9 74 19 120/75 (90) 97 Room Air General: Awake and alert, no acute distress HEENT: Normocephalic. There is a 3 cm laceration over the right eyebrow that is hemostatic, linear, superficial. No periorbital edema. Extraocular movements are intact. Pupils are equal and reactive bilaterally. Patient has poor dentition but moist mucous membranes Neck: Supple, trachea midline Chest Wall: No tenderness, no deformity Cardiovascular: RRR. S1 and S2 normal. No murmur appreciated Resp: Normal work of breathing. No cough, wheezing or crackles appreciated Abdomen: Abdomen is soft, nondistended. Nontender Skin: 3 cm laceration of the right eyebrow, hemostatic, linear, superficial, no surrounding erythema, no debris appreciated. MSK: Normal tone and bulk. Moving all extremities. No obvious deformity. Neuro: Awake and alert. Mentating appropriately. Back/Spine: No midline tenderness, step-off or deformity noted in the cervical spine. Full range of motion at the cervical spine. Procedures Laceration/Wound Repair Laceration/Wound Repair : Consent: Verbal Wound Location: head Wound's Depth, Shape: superficial, linear Wound Explored: clean Betadine Prep?: Yes Wound Debrided: None Wound Repaired With: Dermabond Patient Tolerated: Well Complications: None Medical Decision Making Diagnostic Impression: Primary Impression: Forehead laceration Additional Impression: Closed head injury ER Course 53-year-old male presenting for evaluation and treatment of a left eyebrow laceration after mechanical fall from standing. Patient is awake, alert, no acute distress and the wound itself appears superficial and clean. Will update tetanus and sent for a CT scan. The very small superficial laceration was approximated and closed with Dermabond. There is no reported seizure activity and the patient states that he fell because his right leg is weak at baseline and has multiple falls. Do not see acute indication for emergent labs or other work-up at this time. Can advance work-up as needed based on imaging results and patient condition on reevaluation. Reevaluation Time: 04:51 Last Vital Signs Date Time Temp Pulse Resp B/P (MAP) Pulse Ox O2 Delivery O2 Flow Rate FiO2 11/27/18 01:37 97.9 74 19 120/75 (90) 97 Room Air Reevaluation Impression CT of the head does not show any acute changes or signs of traumatic injury. Wound was well approximated with Dermabond. Can go back to his facility with PMD follow-up. Disposition: ASSISTED LIVING Condition: Improved Cornell Dai MD Nov 27, 2018 01:44
[2018-11-27] MEDS ORDERED: VIREAD300 MG ORAL (02:19)
[2018-11-27] MEDS ORDERED: LEVEMIR100 UNIT/1 SUBQ (02:19)
[2018-11-27] MEDS ORDERED: MYLANTA30 M1 GT (02:19)
[2018-11-27] MEDS ORDERED: HEPARIN SO5000 UNIT2 SUBQ (02:19)
[2018-11-27] MEDS ORDERED: NOVOLOG100 UNIT/4 SQ (02:19)
[2018-11-27] MEDS ORDERED: ALBUTEROL2.5 MG/3 M INH (02:19)
[2018-11-27] MEDS ORDERED: POLYETHYLENE GL17 GM ORAL (02:23)
[2018-11-27] MEDS ORDERED: NITROGLYCERIN2.5 MG PO (02:23)
[2018-11-27] MEDS ORDERED: TEMAZEPAM15 MG ORAL (02:23)
[2018-11-27] MEDS ORDERED: NORVIR100 MG ORAL (02:23)
[2018-11-27] MEDS ORDERED: ZOFRAN4 M3 ORAL (02:23)
--- NOTE | 2018-11-27 03:58 | NUR ---
ED Nurse Note: left for head ct
[2018-11-27 04:14] VITALS: BP 130/77
--- NOTE | 2018-11-27 04:14 | NUR ---
ED Nurse Note: back from ct
--- NOTE | 2018-11-27 04:54 | Diagnostic Imaging Report ---
EXAM: CT Head Without Intravenous Contrast CLINICAL HISTORY: INJ TECHNIQUE: Axial computed tomography images of the head brain without intravenous contrast. CTDI is 60 mGy and DLP is 1442 mGy-cm. One or more of the following dose reduction techniques were used: automated exposure control, adjustment of the mA and or kV according to patient size, use of iterative reconstruction technique. COMPARISON: No relevant prior studies available. 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 No intracranial hemorrhage, mass effect, or edema. Ventricles: Unremarkable. No ventriculomegaly. Bones joints: Unremarkable. No acute fracture. Soft tissues: Unremarkable. Sinuses: Unremarkable as visualized. No acute sinusitis. Mastoid air cells: Unremarkable as visualized. No mastoid effusion. IMPRESSION: 1. No acute intracranial abnormality. 2. 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
--- NOTE | 2018-11-27 05:07 | NUR ---
ED Nurse Note: pt is ready to be DC'd. will be going back to [facility]. report given to NATE Sow. currently awaiting for transportation.
[2018-11-27 06:45] VITALS: BP 135/82
--- NOTE | 2018-11-27 06:46 | NUR ---
ED Nurse Note: pt in bed resting with eyes closed. no acute distress is noted.
[2018-11-27 08:30] VITALS: BP 124/76
--- NOTE | 2018-11-27 08:30 | NUR ---
ED Nurse Note: pt was d/c back to [facility] via BLS transfer, transfer isntructions given to ambulance personnel. pt is AOx4, stable, in no acute distress. wound glue applied on R eyebrow prior to da shift. wound is is closed, clean and dry. pt tolerated procedure well. no c/o pain or any other symptoms. care was endorsed to RN at [facility].
== END 2018-11-27 08:30 | disposition home or self-care (01) ==
LOC: EDBD 01:36 → EDUNIT# 01:36 → EMR 01:55
DX: S01.81XA Laceration without foreign body of other part of head, initial encounter (principal); S09.90XA Unspecified injury of head, initial encounter; E11.9 Type 2 diabetes mellitus without complications; I10 Essential (primary) hypertension; Z23 Encounter for immunization; G40.909 Epilepsy, unspecified, not intractable, without status epilepticus; B20 Human immunodeficiency virus [HIV] disease; W01.0XXA Fall on same level from slipping, tripping and stumbling without subsequent striking against object, initial encounter; Y92.129 Unspecified place in nursing home as the place of occurrence of the external cause
CPT/HCPCS: 12013; 70450; 82962; 90471; 90715; Z7502; 99284